=== PATIENT | female | born 1985 | race Caucasian/White ===

== ENCOUNTER → 2023-12-18 | Outpatient (CLI) | payer OTHER ==
[2023-12-18 15:58] LABS: BASOPHILS ABSOLUTE AUTO 0.02 K/mm3 (0.00-0.23); BASOPHILS PERCENT AUTO 0 % (0-2); EOSINOPHILS ABSOLUTE AUTO 0.16 K/mm3 (0.00-0.68); EOSINOPHILS PERCENT AUTO 2 % (0-6); Hematocrit 41.4 % (33.0-51.0); Hemoglobin 14.3 g/dL (11.5-16.0); IMMATURE GRAN ABSOLUTE AUTO 0.02 K/mm3 (0.00-0.10); IMMATURE GRAN PERCENT AUTO 0 % (0-1); LYMPHOCYTES PERCENT AUTO 26 % (21-46); MONOCYTES ABSOLUTE AUTO 0.41 K/mm3 (0.16-1.47); MONOCYTES PERCENT AUTO 4 % (4-13); Mean Corpuscular HGB 29.9 pg (26.0-34.0); Mean Corpuscular HGB Conc 34.5 g/dL (31.5-36.5); Mean Corpuscular Volume 86 fL (80-100); Mean Platelet Volume 9.9 fL (9.1-12.4); NEUTROPHILS ABSOLUTE AUTO 6.33 K/mm3 (1.96-9.15); NEUTROPHILS PERCENT AUTO 68 % (41-73); Platelet Count 246 K/mm3 (150-400); RDW Coefficient Variation 12.7 % (11.7-14.2); RDW Standard Deviation 39.7 fL (35.1-46.3); Red Blood Cell Count 4.79 M/mm3 (3.80-5.20); White Blood Cell Count 9.34 K/mm3 (4.00-11.30)
[2023-12-18 16:06] LABS: Albumin, Blood 3.4 g/dL (3.4-5.0); Bilirubin, Total 0.6 mg/dL (0.1-1.0); Bun/Creatinine Ratio 10.8 (12.0-20.0); Calcium, Blood 8.8 mg/dL (8.5-10.1); Creatinine, Blood 0.93 mg/dL (0.40-1.00); Globulin, Blood 3.4 g/dL (2.2-4.0); Potassium, Blood 3.1 mmol/L (3.5-5.5); Total Protein, Blood 6.8 g/dL (6.4-8.2)
== END ==
LOC: LAB 15:52 → LAB SHORT 15:52
PROVIDERS: Family Medicine
DX: R10.31 Right lower quadrant pain (principal)
CPT/HCPCS: 80053; 85025

== ENCOUNTER 2024-02-28 18:28 | Emergency (ER) | payer OTHER ==
[~2024-02-28] VITALS: Ht 157.5 cm; Wt 72.6 kg
[2024-02-28] MEDS ORDERED: KLONOPIN0.5 M9 PO (18:55)
[2024-02-28] MEDS ORDERED: AMITRIPTYLINE H25 MG PO (18:55)
[2024-02-28] MEDS ORDERED: Cyclobenzaprine5 MG PO (18:56)
[2024-02-28] MEDS ORDERED: CYMBALTA30 M2 PO (18:56)
[2024-02-28] MEDS ORDERED: Amitriptyline HCl 50 MG Tab PO ONE (19:05)
[2024-02-28] MEDS ORDERED: LORazepam 1 MG Tab PO ONE (19:05)
[2024-02-28] MEDS ORDERED: DULO30 PO (19:53)
[2024-02-28] MEDS ORDERED: AMIT25 PO (19:53)
== END 2024-02-28 20:01 | disposition home or self-care (01) ==
LOC: ER 18:28
DX: F43.0 Acute stress reaction (principal); F41.8 Other specified anxiety disorders; Z88.0 Allergy status to penicillin; Z88.8 Allergy status to other drugs, medicaments and biological substances; Z88.6 Allergy status to analgesic agent; Z88.2 Allergy status to sulfonamides; Z88.1 Allergy status to other antibiotic agents
CPT/HCPCS: 99284; A9270

== ENCOUNTER 2024-05-30 16:09 | Inpatient (IN) | payer OTHER ==
[2024-05-30] VITALS (18 sets, daily range): BP systolic 90–143; BP diastolic 59–104
[~2024-05-30] VITALS: Ht 172.7 cm; Wt 73.4 kg
[~2024-05-30 16:09] MED LIST: AMIT25 PO; AMITRIPTYLINE H25 MG PO; CYMBALTA30 M2 PO; Cyclobenzaprine5 MG PO; DULO30 PO; KLONOPIN0.5 M9 PO
[2024-05-30] MEDS ORDERED: Sodium Bicarb 8.4% 1 MEQ/ML 50 ML Vial IV ONE (16:20)
[2024-05-30] MEDS ORDERED: fentaNYL citrate 1,000 MCG in NS 80 ML IV SCH (16:25)
[2024-05-30 16:32] LABS: BASOPHILS ABSOLUTE AUTO 0.05 K/mm3 (0.00-0.23); BASOPHILS PERCENT AUTO 0 % (0-2); EOSINOPHILS ABSOLUTE AUTO 0.12 K/mm3 (0.00-0.68); EOSINOPHILS PERCENT AUTO 1 % (0-6); Hematocrit 44.4 % (33.0-51.0); Hemoglobin 15.6 g/dL (11.5-16.0); IMMATURE GRAN ABSOLUTE AUTO 0.05 K/mm3 (0.00-0.10); IMMATURE GRAN PERCENT AUTO 0 % (0-1); LYMPHOCYTES ABSOLUTE AUTO 4.01 K/mm3 (0.84-5.20); LYMPHOCYTES PERCENT AUTO 29 % (21-46); MONOCYTES ABSOLUTE AUTO 0.72 K/mm3 (0.16-1.47); MONOCYTES PERCENT AUTO 5 % (4-13); Mean Corpuscular HGB 30.5 pg (26.0-34.0); Mean Corpuscular HGB Conc 35.1 g/dL (31.5-36.5); Mean Corpuscular Volume 87 fL (80-100); NEUTROPHILS ABSOLUTE AUTO 9.06 K/mm3 (1.96-9.15); NEUTROPHILS PERCENT AUTO 65 % (41-73); Platelet Count 375 K/mm3 (150-400); RDW Coefficient Variation 12.2 % (11.7-14.2); RDW Standard Deviation 38.9 fL (35.1-46.3); Red Blood Cell Count 5.11 M/mm3 (3.80-5.20); White Blood Cell Count 14.01 K/mm3 (4.00-11.30)
[2024-05-30] MEDS ORDERED: Milrinone/Dextrose 100 ML IV SCH (16:45)
[2024-05-30] MEDS ORDERED: Midazolam HCL 50 MG in NS 40 ML IV SCH (16:45)
[2024-05-30 16:57] LABS: Ethanol (Alcohol), Blood, Med <3 mg/dL; Salicylate 3.3 mg/dL (2.8-20.0)
[2024-05-30 17:01] LABS: Acetaminophen, Random <2.0 ug/mL (10.0-30.0); Alanine Aminotransfer (ALT/SGP 30 U/L (12-78); Albumin, Blood 3.6 g/dL (3.4-5.0); Albumin/Globulin Ratio 1.1 (0.8-1.8); Alk Phos 60 U/L (50-136); Anion Gap 13 mmol/L (3-11); Aspartate Aminotrans (AST/SGOT 18 U/L (12-37); Blood Urea Nitrogen 13 mg/dL (8-24); Bun/Creatinine Ratio 12.6 (12.0-20.0); CO2, Blood 21 mmol/L (21-32); Calcium, Blood 8.8 mg/dL (8.5-10.1); Chloride, Blood 105 mmol/L (98-108); Creatinine, Blood 1.03 mg/dL (0.40-1.00); Globulin, Blood 3.4 g/dL (2.2-4.0); Glomerular Filtration Rate 72 (60-); Glucose, Blood 247 mg/dL (70-99); Potassium, Blood 3.5 mmol/L (3.5-5.5); Sodium, Blood 135 mmol/L (136-145)
[2024-05-30 17:03] LABS: Source, Urine Clean Catch
[2024-05-30 17:15] LABS: Appearance, Urine Clear (Clear); Bilirubin, Urine Neg (Neg); Blood, Urine Neg (Neg); Color, Urine Yellow (P-Yellow); Glucose Qualitative, Urine Neg (Neg); Ketones, Urine Neg (Neg); Leukocyte Esterase, Urine Neg (Neg); Nitrite, Urine Neg (Neg); Protein, Urine 2+ (Neg); Specific Gravity, Urine 1.025 (1.003-1.022); Urobilinogen, Urine NORM (Normal)
[2024-05-30 17:34] LABS: U Amphetamine Screen DETECTED; U Barbituate Screen Not Detected; U Benzodiazapine Screen Not Detected; U Buprenorphine Screen Not Detected; U Cannabinoids Screen Not Detected; U Cocaine Screen Not Detected; U Methadone Screen Not Detected; U Methamphetamine Screen DETECTED; U Opiates Screen Not Detected; U Oxycodone Screen Not Detected; U Phencyclidine Screen Not Detected
[2024-05-30 17:47] LABS: Bacteria Many /hpf; Mucus Light (0-Heavy); Squamous Epithelial Cells Few /hpf (Few); White Blood Cells, Urine 0-2 /hpf (0-5)
[2024-05-30 17:59] LABS: CORONAVIRUS COVID-19 AG Negative (NEGATIVE); INFLUENZA A AG Negative (NEGATIVE); INFLUENZA B AG Negative (NEGATIVE)
[2024-05-30 19:07] LABS: Base Excess Venous -0.6 mmol/L; Bicarbonate Venous 24.7 mmol/L (24.0-30.0); pH Blood Venous 7.48 (7.34-7.37)
[2024-05-30] MEDS ORDERED: Lactated Ringer's 1,000 ML IV SCH ×2 (19:30→19:35)
[2024-05-30] MEDS ORDERED: NS 1,000 ML IV ONE (20:00)
[2024-05-30] MEDS ORDERED: Cetylpyridinium Chloride 1 EA MISC MT SCH (20:00)
[2024-05-30] MEDS ORDERED: FLU VACC TS2024-25(6MOS UP)/PF 45 MCG/0.5 ML SYRINGE IM ONE (21:00)
[2024-05-30] MEDS ORDERED: Ketamine HCl 100 MG / ML 5ML Vial XX ONE (21:35)
[2024-05-30] MEDS ORDERED: Rocuronium Bromide 10 MG/ML 5ML Injection IV ONE (21:35)
[2024-05-30] MEDS ORDERED: ePHEDrine Sulfate 50 MG/ML 1ML Injection XX ONE (21:35)
[2024-05-30] MEDS ORDERED: AMIT50 PO (22:12)
[2024-05-30] MEDS ORDERED: PROP10 PO (22:13)
--- NOTE | 2024-05-30 23:09 | NUR ---
ARRIVAL TO ICU PT ARRIVED TO ICU 9 AT 194 VIA ED BED AND TRANSFERED OVER TO ICU BED VIA SLIDE SHEET. BEING ADMITTED WITH INTENTIONAL OD. SHE IS SEDATED WITH VERSED INFUSING AT 4MG/HR AND FENTANYL AT 50MCG/HR; RASS EITHER -3 TO +2, CHALLENGING TO SEDATED DURING PERSONAL CARE. ON THE VENT WITH SETTINGS AC/VC 14/400/5/30%. AFEBRILE. NSR WITH RATE 70'S. LEVOPHED INFUSING FOR HYPOTENSION; SEE FLOWSHEET FOR TITRATION. OG PLACED TO LIS. SCHMIDT IN PLACE AND DRAINING TO GRAVITY. ADDITIONAL BOLUS GIVEN ONCE ARRIVAL. NOW LR INFUSING AT 200ML/HR. SEE ADDMISSION ASSESSMENT FOR FULL ASSESSMENT. PT MOTHER NGOC AT BEDSIDE UNTIL 2114. SHE WAS EMOTIONALLY DISTRAUGHT AND FEQUENTLY TEARFUL. EXPRESSING GUILT AND REFLECTED UPON THE PT LIFE/STRUGGLES FOLLOWED BY HER LIFE/STRUGGLES. DISCUSSED INFORMATIONAL CONSENT WHERE NGOC PUT A CODE WORD IN PLACE "GELY".
--- NOTE | 2024-05-30 23:52 | NUR ---
POISON CONTROL CONNECTED WITH POISON CONTROL AT 2004. THEY RECOMMENDED CHECKING ANOTHER ASPIRIN LEVEL, AND COMPLETING AN EKG NOW, AT 0000, AND IN THE AM. ALSO TO MONITOR FOR WIDENING QRS COMPLEX AND QTC CHANGES. FAX SENT OVER FROM POISON CONTROL WITH MORE DETAILED INFORMATION.
[2024-05-31] VITALS (92 sets, daily range): BP systolic 79–140; BP diastolic 50–90
[2024-05-31] MEDS ORDERED: Hydrogen Peroxide 1.5 % Solution MT SCH
[2024-05-31] MEDS ORDERED: FentaNYL Citrate 50 MCG/ML 2 ML Injection ONE (02:25)
[2024-05-31] MEDS ORDERED: FentaNYL Citrate 50 MCG/ML 2 ML Injection IV ONE (02:35)
[2024-05-31] MEDS ORDERED: FentaNYL Citrate 50 MCG/ML 2 ML Injection IV PRN (02:55)
[2024-05-31 04:46] LABS: Base Excess Venous 1.3 mmol/L; Bicarbonate Venous 25.1 mmol/L (24.0-30.0); pH Blood Venous 7.42 (7.34-7.37)
[2024-05-31 05:01] LABS: BASOPHILS ABSOLUTE AUTO 0.02 K/mm3 (0.00-0.23); BASOPHILS PERCENT AUTO 0 % (0-2); EOSINOPHILS ABSOLUTE AUTO 0.07 K/mm3 (0.00-0.68); EOSINOPHILS PERCENT AUTO 1 % (0-6); Hematocrit 34.6 % (33.0-51.0); IMMATURE GRAN ABSOLUTE AUTO 0.06 K/mm3 (0.00-0.10); IMMATURE GRAN PERCENT AUTO 1 % (0-1); LYMPHOCYTES ABSOLUTE AUTO 2.31 K/mm3 (0.84-5.20); LYMPHOCYTES PERCENT AUTO 18 % (21-46); MONOCYTES ABSOLUTE AUTO 0.89 K/mm3 (0.16-1.47); MONOCYTES PERCENT AUTO 7 % (4-13); Mean Corpuscular HGB 30.9 pg (26.0-34.0); Mean Corpuscular HGB Conc 34.7 g/dL (31.5-36.5); Mean Corpuscular Volume 89 fL (80-100); Mean Platelet Volume 9.8 fL (9.1-12.4); NEUTROPHILS ABSOLUTE AUTO 9.58 K/mm3 (1.96-9.15); NEUTROPHILS PERCENT AUTO 74 % (41-73); Platelet Count 194 K/mm3 (150-400); RDW Coefficient Variation 12.6 % (11.7-14.2); RDW Standard Deviation 41.3 fL (35.1-46.3); Red Blood Cell Count 3.88 M/mm3 (3.80-5.20); White Blood Cell Count 12.93 K/mm3 (4.00-11.30)
[2024-05-31 05:40] LABS: Albumin, Blood 2.7 g/dL (3.4-5.0); Bilirubin, Total 1.1 mg/dL (0.1-1.0); Bun/Creatinine Ratio 17.4 (12.0-20.0); Creatinine, Blood 0.69 mg/dL (0.40-1.00); Globulin, Blood 2.6 g/dL (2.2-4.0); Potassium, Blood 3.2 mmol/L (3.5-5.5); Total Protein, Blood 5.3 g/dL (6.4-8.2)
[2024-05-31] MEDS ORDERED: NS 500 ML IV ONE (06:00)
[2024-05-31] MEDS ORDERED: Potassium Chloride 40 MEQ in NS 250 ML IV ONE (06:00)
--- NOTE | 2024-05-31 06:38 | NUR ---
END OF SHIFT SUMMARY PT CONT TO BE SEDATED AND INTUBATED. SEDATION CHALLENGING T/O THE SHIFT, PT WOULD GO FROM RASS OF -3, TO RASS OF +3 DURING PERSONAL CARE; OCCATIONALLY SHE WAS REDIRECTABLE AND WOULD RETURN TO RASS OF -2; VERSED SLOWLY TITRATED UP DRURING SHIFT BUT EVENTUALLY CONTACTED DR SIDDIQI WHEN PT WAS NOT REDIRECTABLE ANYMORE AND KICKING LEGS AT STAFF; PRN FENTANYL PUSHES ADDED AND HELPED RETURN RASS TO -2; FENANYL GTT CONT AT 50MCG/HR AND VERSED INFUSING AT 11MG/HR. VENT SETTINGS AC/VC 14/400/5/30%. AFEBRILE. HR 60-70'S, NSR; THREE ECG'S COMPLETED PER POISON CONTROLS RECOMMENDATION; ONE EPISODE OF HR IN 30'S, LEVOPHED TEMPORARILY RESTARTED AT 2MCG/MIN BUT PLACED ON SB AGAIN AFTER 0600. SBP 90-120'S; ORIGINALLY LEVOPHED PLACED ON SB AT 0030. OG TO LIS. SCHMIDT IN PLACE AND DRAINING SMALL AMOUNT TO GRAVITY; CALL MADE TO HOSPITALIST REGARDING DECREASE IN OUTPUT; NEW ORDERS FOR 500ML BOLUS X1. CENTRAL LINE TO RIJ PATENT WITH DRESSING C/D/I. LR INFUSING AT 200ML/HR. NEW ORDERS PROVIDED TO REPLACE K+. WILL REPORT TO AM RN WHEN AVAILABLE.
[2024-05-31] MEDS ORDERED: Enoxaparin 40 MG/0.4 ML SYR SC SCH (09:00)
[2024-05-31] MEDS ORDERED: Pantoprazole Sodium 40 MG Injection IV SCH (09:00)
[2024-05-31] MEDS ORDERED: propofoL 100 ML IV SCH (09:55)
[2024-05-31] MEDS ORDERED: CefTRIAXone Sodium 1,000 MG in NS 100 ML IV SCH (10:41)
[2024-05-31] MEDS ORDERED: Thiamine HCl 100 MG in NS 50 ML IV SCH (10:43)
[2024-05-31] MEDS ORDERED: Magnesium Hydroxide Conc 10 ML UDC PT PRN (12:45)
[2024-05-31] MEDS ORDERED: Bisacodyl 10 MG Supp PR PRN (12:45)
[2024-05-31] MEDS ORDERED: Docusate Sodium Liquid 100 MG UDC PT PRN (12:45)
[2024-05-31] MEDS ORDERED: Folic Acid 1 MG TAB PT SCH (12:55)
[2024-05-31] MEDS ORDERED: Multivitamins-Minerals Liquid 15 ML Oral Syringe PT SCH (12:55)
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
--- NOTE | 2024-05-31 13:57 | NUR ---
REASSESSMENT PT'S VERSED WAS OFF THIS MORNING AND PT WAS ABLE TO FOLLOW COMANDS TO MOVE EACH EXTREMITY. SHE WAS AGITATED AND ABLE TO BE CALMED DOWN AT FIRST, BUT THEN REQUIRED SEDATION TO BE RESTARTED. IT WAS DECREASED TO 2MG/HR FOR HER WEANING TRIAL, BUT PT FAILED DUE TO APNEA. AT THAT TIME, DR. BURNHAM GAVE INSTRUCTIONS TO SWITCH VERSED TO PROPOFOL, WHICH WAS DONE. SHE IS LESS AGITATED WITH TURNS AND ORAL CARE AFTER SWITCHING TO PROPOFOL. FFENTANYL STILL INFUSING. LUNGS ARE CLEAR, SMALL TO MODERATE AMT OF THIN, WHITE SPUTUM. SR WITH RATE OF 60. FOR ABOUT 30 SECONDS THIS MORNING, HR DIPPED TO THE MID 30S, BUT CAME BACK UP SPONTANEOUSLY AND HASN'T HAPPENED AGAIN. TUBE FEED STARTED PER HEALTH SANITARIAN'S ORDERS. SCHMIDT ONLY PUTTING OUT ABOUT 15ML/HR, DR. BURNHAM AWARE. LR STOPPED PT HAS ALREADY HAD 4L OF FLUID. ORDER FOR CMP T OCHECK KIDNEY FUNCTION. PT'S MOTHER IS AT THE BEDSIDE AND HAS BEEN UDPATED BY NURSING STAFF AND VISITED BY TRACK LAMINATING MACHINE TENDER.
[2024-05-31 14:08] LABS: Albumin, Blood 2.3 g/dL (3.4-5.0); Bilirubin, Total 0.9 mg/dL (0.1-1.0); Bun/Creatinine Ratio 12.5 (12.0-20.0); Calcium, Blood 7.9 mg/dL (8.5-10.1); Creatinine, Blood 0.8 mg/dL (0.40-1.00); Globulin, Blood 2.4 g/dL (2.2-4.0); Potassium, Blood 3.8 mmol/L (3.5-5.5); Total Protein, Blood 4.7 g/dL (6.4-8.2)
[2024-05-31] MEDS ORDERED: LORazepam 2 MG/ML 1ML Injection IV PRN (14:55)
[2024-05-31] MEDS ORDERED: Potassium Phosphate Dibasic 30 MM in Dextrose 5% 500 ML IV SCH (15:00)
--- NOTE | 2024-05-31 17:00 | NUR ---
SHIFT SUMMARY PT REMAINS ALERT AND ORIENTED, ON 1L/NC. TRIALLED PT ON RA AGAIN THIS AFTERNOON AND SPO2 DROPS TO 85-88%. LUNGS ARE CLEAR, NONPRODUCTIVE COUGH TODAY. HRR. VOIDING USING THE COMMODE. WORKED WITH OT TODAY. TOOK A SHOWER. POOR APPETITE.
--- NOTE | 2024-05-31 17:20 | NUR ---
SHIFT SUMMARY PT REMAINS SEDATED AND INTUBATED. SHE WAS AGITATED THIS AFTERNOON DESPITE RECEVING PRN FENTANYL. SPOKE WITH DR. BURNHAM AND ORDER FOR PRN ATIVAN RECEIVED AND PT WAS MUCH LESS AGITATED AFTERWARDS. PROPFOL DROPPED TO 25MCG/KG/MIN WHEN HER HR WAS SUSTAINING AT 50. HR CURRENTLY 58. LUNGS CLEAR, MODERATE AMT OF SECRETIONS THIS AFTERNOON. MAP SUSTAINED BELOW 65 THIS AFTERNOON SO LEVOPHED HAD TO BE RESTARTED AND HAS MAINTAINED AT 2MCG/MIN. URINE OUTPUT CONTINUES TO AVERAGE ABOUT 20 ML/HR. TOLERATING TUBE FEED. SPOKE WITH PT'S MOTHER VIA PHONE THIS EVENING AND PROVIDED UPDATE.
[2024-05-31 20:41] LABS: Bun/Creatinine Ratio 11.9 (12.0-20.0); Calcium, Blood 7.7 mg/dL (8.5-10.1); Creatinine, Blood 0.75 mg/dL (0.40-1.00); Phosphorus, Blood 4.1 mg/dL (2.5-4.9); Potassium, Blood 3.9 mmol/L (3.5-5.5)
--- NOTE | 2024-05-31 21:33 | NUR ---
ASSUMED CARE AT 1900 PT LAYING IN BED SEDATED AND INTUBATED. SHE IS SEDATED ON PROPOFOL INFUSING AT 25MCG/KG/MIN AND FENTANYL INFUSING AT 50MCG/HR; RASS IS -2 WHEN TALKING TO HER BUT DURING PERSONAL CARE, PT BECOMES RESTLESS WITH RASS +2 AND PRN'S NEEDED FOR SEDATION; PRN ATIVAN AND FENTANYL AVAILABLE. VENT SETTINGS AC/VC 14/400/5/30%. AFEBRILE. NSR WITH RATE 60'S. SBP 100'S WITH MAP >65; LEVOPHED INFUSING AT 2MCG/HR. VHP INFUSING VIA OG AT 45ML/HR (GOAL) WITH 30ML WATER FLUSHES Q4HR. SCHMIDT IN PLACE WITH SMALL AMOUNT OF URINE OUTPUT. CENTRAL LINE TO RIJ PATENT WITH DRESSING C/D/I. SEE SHIFT ASSESSMENT FOR FULL ASSESSMENT. PT MOTHER NGOC CALLED AND WAS GIVEN AN UPDATE AT 2100.
[2024-06-01] VITALS (54 sets, daily range): BP systolic 99–126; BP diastolic 57–84
[2024-06-01 04:47] LABS: BASOPHILS ABSOLUTE AUTO 0.02 K/mm3 (0.00-0.23); BASOPHILS PERCENT AUTO 0 % (0-2); EOSINOPHILS ABSOLUTE AUTO 0.08 K/mm3 (0.00-0.68); EOSINOPHILS PERCENT AUTO 1 % (0-6); Hematocrit 33.3 % (33.0-51.0); Hemoglobin 11.1 g/dL (11.5-16.0); IMMATURE GRAN ABSOLUTE AUTO 0.04 K/mm3 (0.00-0.10); IMMATURE GRAN PERCENT AUTO 0 % (0-1); LYMPHOCYTES ABSOLUTE AUTO 2.07 K/mm3 (0.84-5.20); LYMPHOCYTES PERCENT AUTO 23 % (21-46); MONOCYTES ABSOLUTE AUTO 0.73 K/mm3 (0.16-1.47); MONOCYTES PERCENT AUTO 8 % (4-13); Mean Corpuscular HGB 30.7 pg (26.0-34.0); Mean Corpuscular HGB Conc 33.3 g/dL (31.5-36.5); Mean Corpuscular Volume 92 fL (80-100); Mean Platelet Volume 10.2 fL (9.1-12.4); NEUTROPHILS ABSOLUTE AUTO 6.19 K/mm3 (1.96-9.15); NEUTROPHILS PERCENT AUTO 68 % (41-73); Platelet Count 148 K/mm3 (150-400); RDW Coefficient Variation 12.6 % (11.7-14.2); RDW Standard Deviation 42.8 fL (35.1-46.3); Red Blood Cell Count 3.62 M/mm3 (3.80-5.20); White Blood Cell Count 9.13 K/mm3 (4.00-11.30)
[2024-06-01 05:05] LABS: Albumin, Blood 2.5 g/dL (3.4-5.0); Albumin/Globulin Ratio 0.9 (0.8-1.8); Bilirubin, Total 0.5 mg/dL (0.1-1.0); Bun/Creatinine Ratio 14.4 (12.0-20.0); Calcium, Blood 7.8 mg/dL (8.5-10.1); Creatinine, Blood 0.76 mg/dL (0.40-1.00); Globulin, Blood 2.7 g/dL (2.2-4.0); Phosphorus, Blood 3.3 mg/dL (2.5-4.9); Potassium, Blood 3.5 mmol/L (3.5-5.5); Total Protein, Blood 5.2 g/dL (6.4-8.2)
--- NOTE | 2024-06-01 06:21 | NUR ---
END OF SHIFT SUMMARY NO ACUTE EVENTS OVERNIGHT. SHE CONT TO BE SEDATED WITH PROPOFOL INFUSING AT 35MCG/KG/MIN AND FENTANYL 50MCG/HR; RASS EITHER -2 OR +1; ATIVAN GIVEN SEVERAL TIME T/O THE NIGHT FOR RASS OF +1 TO +2. VENT SETTINGS REMAIN AC/VC 14/400/5/30%. AFEBRILE. HR 60-70'S. SBP 100-115; LEVOPHED ON SB AT 0130. VHP INFUSING VIA OG AT GOAL. SCHMIDT IN PLACE WITH 350ML OUTPUT; STARTING TO BECOME MORE CLOUDY. CENTRAL LINE TO RIJ PATENT WITH DRESSING C/D/I. WILL REPORT TO AM RN WHEN AVAILABLE.
--- NOTE | 2024-06-01 07:00 | NUR ---
ASSUMPTION OF CARE PT RECEIVING PROPOFOL 35MCG/KG/MIN AND FENTANYL 50MCG/HR. SHE IS INTUBATED WITH VENT SETTINGS AC/VC 14/400/5/30%. RASS -1. WITH STIMULI AND CARE RASS INCREASES TO +2. TUBE FEEDING INFUSING AT GOAL RATE VIA OGT. SINUS ON MONITOR WITH RATE IN 70S, BP STABLE WITH MAP >65. TEMP SCHMIDT PATENT AND DRAINING TO GRAVITY.
[2024-06-01] MEDS ORDERED: Thiamine HCl 100 MG Tab PT SCH (09:00)
--- NOTE | 2024-06-01 09:56 | NUR ---
SPONTANEOUS BREATHING TRIAL: DR. QUAN INITIATED SPONTANEOUS BREATHING TRIAL AT 0955. REPORTED PLAN TO EXTUBATE TODAY. TUBE FEEDING PLACED ON STAND BY. CHARGE NURSE NOTIFIED AND WORKING ON OBTAINING A SITTER FOR THIS PATIENT.
--- NOTE | 2024-06-01 11:17 | NUR ---
UPDATE/EXTUBATION PT TRANSITIONED TO SPONT AT 0955 AND TOLERATING WELL. SEDATION OFF. PT IS AWAKE, SITTING UP IN BED AND PULLING AGAINST RESTRAINTS. EXPLAINED EXTUBATION TO PT, PT BECOMES CALM AND FOLLOWS COMMANDS. EXTUBATED AT 1030. ON RA WITH SPO2 >92%. HOSPITALIST ROUNDED. PROVIDER CONSULT PLACED TO DR ABERNATHY. VOICE IS SOFT, PT ASKS FOR HER MOTHER. CALLED PT'S MOTHER WHO IS NOW AT BEDSIDE. 1:[address]
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
--- NOTE | 2024-06-01 18:16 | NUR ---
BELONGINGS PHONE, PAIR OF BLACK SHOES, 2 BRAS, 1 SHIRT, PAIR OF SOCKS, EMPTY AMITRIPTYLINE AND EMPTY PROPRANOLOL IN PATIENT BELONGINGS BAG WITH PT LABEL. BELONGINGS LOCKED IN CABINET IN ROOM.
[2024-06-02 04:52] VITALS: BP 120/75
[2024-06-02 06:20] LABS: BASOPHILS ABSOLUTE AUTO 0.02 K/mm3 (0.00-0.23); BASOPHILS PERCENT AUTO 0 % (0-2); EOSINOPHILS PERCENT AUTO 1 % (0-6); Hematocrit 37.2 % (33.0-51.0); Hemoglobin 12.6 g/dL (11.5-16.0); IMMATURE GRAN ABSOLUTE AUTO 0.04 K/mm3 (0.00-0.10); IMMATURE GRAN PERCENT AUTO 1 % (0-1); LYMPHOCYTES ABSOLUTE AUTO 1.62 K/mm3 (0.84-5.20); LYMPHOCYTES PERCENT AUTO 19 % (21-46); MONOCYTES ABSOLUTE AUTO 0.75 K/mm3 (0.16-1.47); MONOCYTES PERCENT AUTO 9 % (4-13); Mean Corpuscular HGB Conc 33.9 g/dL (31.5-36.5); Mean Corpuscular Volume 91 fL (80-100); Mean Platelet Volume 10.1 fL (9.1-12.4); NEUTROPHILS ABSOLUTE AUTO 6.18 K/mm3 (1.96-9.15); NEUTROPHILS PERCENT AUTO 71 % (41-73); Platelet Count 149 K/mm3 (150-400); RDW Standard Deviation 40.5 fL (35.1-46.3); Red Blood Cell Count 4.07 M/mm3 (3.80-5.20); White Blood Cell Count 8.71 K/mm3 (4.00-11.30)
--- NOTE | 2024-06-02 06:23 | NUR ---
END OF SHIFT SUMMARY NO ACUTE EVENTS OVERNIGHT. SHE WAS ABLE TO GET A FEW LONGER NAPS IN T/O THE NIGHT. SHE IS A/O X3-4, WHEN SHE WAKES UP SHE CAN BE DISORIENTED BUT EASILY REORIENTS; SHE IS RECALLING THE EVENTS THAT LEAD HER TO BE HOSPITALIZED. NO C/O PAIN. 5L NC PLACED WHILE PT IS SLEEPING TO KEEP SPO2 >94%; HAS DRY/HACKING COUGH; VOICE SOFT. AFERBILE. NSR WITH RATE 90-110. BP STABLE. SHE WOKE UP AROUND 0000 HUNGRY AND TOLERATED LARGE SNACK WELL; TOLERATING PO FLUIDS WELL; ONE EPISODE OF DIARRHEA THIS SHIFT. SHE IS ABLE TO AMBULATE WITH MINIMAL ASSISTANCE TO TOILET AND SUCCESSFULLY URINATE. DRESSING OVER PREVIOUS RIJ CENTRAL LINE C/D/I. 1:1 SITTER NOTED ALL SHIFT. WILL REPORT TO AM RN WHEN AVAILABLE.
[2024-06-02 07:00] LABS: Bun/Creatinine Ratio 11.3 (12.0-20.0); Creatinine, Blood 0.71 mg/dL (0.40-1.00); Magnesium, Blood 2.3 mg/dL (1.6-2.4); Phosphorus, Blood 3.4 mg/dL (2.5-4.9); Potassium, Blood 3.6 mmol/L (3.5-5.5)
[2024-06-02] MEDS ORDERED: Folic Acid 1 MG TAB PO SCH (09:00)
[2024-06-02] MEDS ORDERED: Multivitamins 1 Tab PO SCH (09:00)
[2024-06-02] MEDS ORDERED: Thiamine HCl 100 MG Tab PO SCH (09:00)
[2024-06-02 09:01] VITALS: BP 121/71
[2024-06-02] MEDS ORDERED: MULVITA PO (13:57)
[2024-06-02] MEDS ORDERED: Acetaminophen650 M1 PO (13:57)
[2024-06-02] MEDS ORDERED: CEPH500 PO (14:20)
[2024-06-02] MEDS ORDERED: VISBIOME 112.51 EACH PO (14:22)
[2024-06-02 15:36] VITALS: BP 136/89
--- NOTE | 2024-06-02 16:10 | NUR ---
SUMMARY PT A/O X4. ASKING APPROPRIATE QUESTIONS. COOPERATIVE WITH CARE. STANDBY ASSIST OOB. DENIES SUICIDAL IDEATION TODAY. 1:1 SITTER PRESENT. PT IS BEING DISCHARGED TO [facility]. ESCORT ACCOMPANIES PT TO TRANSPORT ARRANGED BY [facility]. NO SIGN OF DISTRESS.
== END 2024-06-02 16:15 | DRG 917 ==
LOC: ER 16:09 → ICUE 18:57
PROVIDERS: Family Medicine; Nurse Practitioner Acute Care; Student in an Organized Health Care Education/Training Program; ADMIT Internal Medicine
PROC: 5A1945Z Respiratory Ventilation, 24-96 Consecutive Hours (ICD-10-PCS; principal; 2024-05-30)
PROC: 0BH17EZ Insertion of Endotracheal Airway into Trachea, Via Natural or Artificial Opening (ICD-10-PCS; 2024-05-30)
PROC: 3E033XZ Introduction of Vasopressor into Peripheral Vein, Percutaneous Approach (ICD-10-PCS; 2024-05-30)
PROC: 05HY33Z Insertion of Infusion Device into Upper Vein, Percutaneous Approach (ICD-10-PCS; 2024-05-30)
DX: T44.7X2A Poisoning by beta-adrenoreceptor antagonists, intentional self-harm, initial encounter (principal); G92.8 Other toxic encephalopathy; J69.0 Pneumonitis due to inhalation of food and vomit; J96.01 Acute respiratory failure with hypoxia; F32.2 Major depressive disorder, single episode, severe without psychotic features; T43.012A Poisoning by tricyclic antidepressants, intentional self-harm, initial encounter; T43.592A Poisoning by other antipsychotics and neuroleptics, intentional self-harm, initial encounter; I95.9 Hypotension, unspecified; F32.A Depression, unspecified; F10.20 Alcohol dependence, uncomplicated; F15.90 Other stimulant use, unspecified, uncomplicated; D69.6 Thrombocytopenia, unspecified; D72.829 Elevated white blood cell count, unspecified; R73.9 Hyperglycemia, unspecified; E87.6 Hypokalemia; F17.210 Nicotine dependence, cigarettes, uncomplicated; Z88.0 Allergy status to penicillin; Z88.2 Allergy status to sulfonamides; Z88.6 Allergy status to analgesic agent; Z88.8 Allergy status to other drugs, medicaments and biological substances; Z91.51 Personal history of suicidal behavior
CPT/HCPCS: 31500; 36415; 36556; 51702; 71045; 80048; 80053; 80320; 81001; 82803; 82947; 83735; 84100; 85025; 87086; 87428-QW; 93005; 93010; 94002; 94003; 94760; 96365; 96366; 96375; 99291-25; A9270; C1751; G0480; J0696; J1650; J2060; J2250; J2260; J2470; J2704; J3010; J3411; J3480; J7030; J7040; J7050; J7060; J7120

== ENCOUNTER 2024-06-02 15:29 | Inpatient (IN) | payer OTHER ==
[~2024-06-02] VITALS: Ht 157.5 cm; Wt 71.5 kg
[~2024-06-02 15:29] MED LIST changes: +AMIT50 PO; +Acetaminophen650 M1 PO; +CEPH500 PO; +MULVITA PO; +PROP10 PO; +VISBIOME 112.51 EACH PO
[2024-06-02 16:32] VITALS: BP 136/93
[2024-06-02 16:54] VITALS: BP 136/93
[2024-06-02] MEDS ORDERED: TraZODone HCl 50 MG Tab PO PRN (17:50)
[2024-06-02] MEDS ORDERED: Haloperidol 5 MG Tab PO PRN (17:50)
[2024-06-02] MEDS ORDERED: OLANZapine ODT 10 MG Tab MM PRN (17:50)
[2024-06-02] MEDS ORDERED: LORazepam 2 MG Tab PO PRN (17:50)
[2024-06-02] MEDS ORDERED: HydrOXYzine Pamoate 50 MG Cap PO PRN (17:50)
[2024-06-02] MEDS ORDERED: Polyethylene Glycol 3350 17 gm PO PRN (17:50)
[2024-06-02] MEDS ORDERED: Calcium Carbonate 500 MG Tab Chew PO PRN (17:55)
[2024-06-02] MEDS ORDERED: Melatonin 3 MG Tab PO PRN (17:55)
[2024-06-02] MEDS ORDERED: FLU VACC TS2024-25(6MOS UP)/PF 45 MCG/0.5 ML SYRINGE IM ONE (17:55)
[2024-06-02] MEDS ORDERED: Aluminum Hydroxide 320MG/5ML 473 ML PO PRN (17:55)
[2024-06-02] MEDS ORDERED: Acetaminophen 325 MG TABLET PO PRN (17:55)
[2024-06-02] MEDS ORDERED: DiphenhydrAMINE HCl 50 MG Cap PO PRN (17:55)
[2024-06-02] MEDS ORDERED: Ondansetron 4 MG SoluTab MM PRN (18:05)
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
[2024-06-02] MEDS ORDERED: Nicotine 21 MG PATCH TOP SCH (18:25)
[2024-06-02 20:53] VITALS: BP 135/103
--- NOTE | 2024-06-03 04:21 | NUR ---
SHIFT SUMMARY: PATIENT WAS IN HER ROOM AT THE BEGINNING OF THE SHIFT, LYING DOWN AND RESTING. SHE RESPONDED TO RN GREETING AND STATED SHE DID NOT WANT TO COME TO SNACK TIME. SHE DID CHANGE HER MIND AND WAS PARTICIPATING IN SNACK AND FOLLOW UP TIME AT 1999. SHE WAS PLEASANT AND COOPERATIVE WITH CARES. SHE WAS COMPLIANT WITH EVENING MEDICATIONS AND WAS UP X1 DURING THE NIGHT FOR A PRN VISTARIL BECAUSE SHE WOKE UP AND COULD NOT FALL BACK ASLEEP. SHE HAD A MAJOR COMPLAINT OF SORE THROAT FROM THE INTUBATION THAT OCCURRED. SHE WAS GIVEN TYLENOL AND HOT TEA. SHE WAS EDUCATED ON WHAT TO EXPECT A RESULT OF THE INTUBATION AND HELPS THAT SHE MIGHT EMPLOY. SHE WAS ENCOURAGED TO BRING IT UP TO THE DR WELL. SHE STATED THAT THE TYLENOL AND THE HOT TEA WERE VERY HELPFUL. SHE DENIED THOUGHTS OF SI OR SELF HARM AT THIS TIME, AND STATED SHE WILL COME AND TALK TO STAFF SHOULD SHE FEEL THAT WAY. SHE DID TALK TO SELECT MHA FOR QUITE SOME TIME IN THE SENSORY ROOM AND STATED THAT IT WAS HELPFUL FOR HER. CONTINUING TO MONITOR FOR SAFETY WITH Q15 MINUTE CHECKS.
[2024-06-03] MEDS ORDERED: Multivitamins 1 Tab PO SCH (09:00)
[2024-06-03] MEDS ORDERED: FLUoxetine HCL 20 MG CAP PO SCH (10:00)
--- NOTE | 2024-06-03 13:35 | NUR ---
NURSE NOTE AT 1253 PT HAD SUDDEN ONSET OF L FOOT NUMBNESS THAT RADIATED UP INTO L SIDE NUMBNESS. SHE BACAME DIZZY AND NOTIFIED THIS RN. PT DENIES CP AND SOB AT THIS TIME. SHE STATES SHE GETS DIZZY WITH HER ANXIETY BUT NEVER NUMB. EKG PERFORMED UNDER NURSE PROTOCAL AND SHOWS NSR. PT STATES SYMPTOMS ALMOST RESOLVED COMPLETELY BY THE TIME THE EKG WAS COMPLETED. DR ABERNATHY NOTIFIED OF INCIDENT AND EKG READING.
--- NOTE | 2024-06-03 15:24 | NUR ---
PT A/O X4. PLEASANT AND COOPERATIVE. PT IS ANXIOUS. DENIES TO BE SI,HI AND VH AT THIS TIME. PT TOLD OF HER OD EPISODE FREELY. SHE SPEAKS OF PRESSURE FROM HER BOYFRIEND AND FAMILY FOR HER TO GO TO WORK AND THAT IS WHAT UPSETS HER THE MOST IS THAT THEY CAN'T UNDERSTAND HER SIDE OF THE ANXIOUSNESS. PT IS TEARY ON AND OFF. STATED SHE SLEPT POORLY LAST NIGHT. FEELS THAT SHE NEEDS MORE MEDICATION. GIVEN NEW ORDER OF PROZAC. AT NOON PT BECAME NAUSEATED AND WAS GIVEN ZOFRAN PRN. PT PARTICPATES IN GROUPS AND INTERACTS WELL WITH OTHERS. WILL CONTINUE TO MONITOR FOR SAFETY AND WELLNESS.
[2024-06-03] MEDS ORDERED: DEXTROMETHORPHAN/BENZOCAINE 1 EACH LOZENGE MT PRN (19:15)
--- NOTE | 2024-06-03 19:26 | NUR ---
SHIFT SUMMARY: PT A/O X4. PLEASANT AND COMPLIANT WITH CARE AND MEDS. PLEASE SEE PREVIOUS NOTES. PTT HAD A VISITOR FROM MOM AND BOY FRIEND TODAY. RECEIVED GOOD NEWS THAT SHE WILL BE ABLE TO HAVE A RELATIONSHIP WITH HER CHILDREN. SHE ALSO LEARNED FROM HER MOTHER THAT" I WAS ALMOST " . SHE BECAME TEARY A BIT. HAS HAD A SORE THROAT ON AND OFF [id number] THE DAY. CEPHOCHOL DROPS ORDERED. WILL CONTINUE TO MONITOR FOR SAFETY AND WELLNESS.
[2024-06-03 20:32] VITALS: BP 123/81
[2024-06-03] MEDS ORDERED: QUEtiapine Fumarate 100 MG Tab PO SCH (21:00)
--- NOTE | 2024-06-04 04:39 | NUR ---
SHIFT SUMMARY: PATIENT WAS IN THE [place] AT THE BEGINNING OF THE SHIFT, WATCHING TELEVISION AND INTERACTING POSITIVELY WITH PEERS. SHE PARTICIPATED IN EVENING SNACK AND FOLLOW UP GROUP IN THE DINING AREA. SHE WAS PLEASANT AND COOPERATIVE WITH CARES. SHE WAS COMPLIANT WITH EVENING MEDICATIONS. SHE BELIEVES SHE WILL GO HOME TODAY (06/04). 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 SHE DENIED THOUGHTS OF SI OR SELF HARMING. CONTINUING TO MONITOR FOR SAFETY WITH Q15 MINUTE CHECKS.
[2024-06-04 08:01] VITALS: BP 129/96
--- NOTE | 2024-06-04 11:35 | NUR ---
IMPORTANT DISCHARGE INFORMATION FOLLOW UP APPOINTMENT WITH [facility] ON: 06/10/24 AT 4PM PHARMACY: [facility]:
[2024-06-04] MEDS ORDERED: Prozac20 MG PO (12:05)
--- NOTE | 2024-06-04 12:44 | NUR ---
DISCHARGE SUMMARY PT DC FROM [facility] AT 1222, MOM HERE TO PICK HER UP, SCRIPT CALLED TO [facility] FOR PROZAC 20MG CAPS, 1 DAILY, #14, 1 REFILL
--- NOTE | 2024-06-04 14:41 | NUR ---
Post discharge: PT CALLED REGARDING DISCHARGE RX. SPOKE WITH PROVIDER AND VERBAL ORDER OBTAINED FOR SEROQUEL 100 MG PO QHS, #7 WITH 3 REFILLS. RX CALLED TO [facility] AT PT REQUEST.
[2024-06-05] MEDS ORDERED: FLUoxetine HCL 20 MG CAP PO SCH (09:00)
== END 2024-06-04 12:22 | disposition home or self-care (01) | DRG 885 ==
LOC: BHU 15:29
PROVIDERS: ADMIT Psychiatry & Neurology Psychiatry
DX: F33.2 Major depressive disorder, recurrent severe without psychotic features (principal); F43.25 Adjustment disorder with mixed disturbance of emotions and conduct; F60.3 Borderline personality disorder; F10.20 Alcohol dependence, uncomplicated; F17.210 Nicotine dependence, cigarettes, uncomplicated; F12.90 Cannabis use, unspecified, uncomplicated; F15.10 Other stimulant abuse, uncomplicated; Z88.2 Allergy status to sulfonamides; Z88.0 Allergy status to penicillin; Z88.8 Allergy status to other drugs, medicaments and biological substances; Z28.21 Immunization not carried out because of patient refusal
CPT/HCPCS: A9270

== ENCOUNTER 2024-08-30 22:50 | Emergency (ER) | payer OTHER ==
[~2024-08-30] VITALS: Ht 157.5 cm; Wt 71.2 kg
[~2024-08-30 22:50] MED LIST changes: +Prozac20 MG PO
== END 2024-08-31 04:40 | disposition left against medical advice (07) ==
LOC: ER 22:50
DX: R10.9 Unspecified abdominal pain (principal); Z53.21 Procedure and treatment not carried out due to patient leaving prior to being seen by health care provider
CPT/HCPCS: 76856

== ENCOUNTER 2024-10-27 22:28 | Emergency (ER) | payer OTHER ==
[~2024-10-27] VITALS: Ht 157.5 cm; Wt 76.2 kg
[2024-10-27 23:22] LABS: Source, Urine Clean Catch
[2024-10-27 23:26] LABS: BASOPHILS ABSOLUTE AUTO 0.04 K/mm3 (0.00-0.23); BASOPHILS PERCENT AUTO 0 % (0-2); EOSINOPHILS ABSOLUTE AUTO 0.23 K/mm3 (0.00-0.68); EOSINOPHILS PERCENT AUTO 2 % (0-6); Hematocrit 47.4 % (33.0-51.0); Hemoglobin 15.8 g/dL (11.5-16.0); IMMATURE GRAN ABSOLUTE AUTO 0.03 K/mm3 (0.00-0.10); IMMATURE GRAN PERCENT AUTO 0 % (0-1); LYMPHOCYTES ABSOLUTE AUTO 3.59 K/mm3 (0.84-5.20); LYMPHOCYTES PERCENT AUTO 34 % (21-46); MONOCYTES ABSOLUTE AUTO 0.51 K/mm3 (0.16-1.47); MONOCYTES PERCENT AUTO 5 % (4-13); Mean Corpuscular HGB Conc 33.3 g/dL (31.5-36.5); Mean Corpuscular Volume 87 fL (80-100); NEUTROPHILS ABSOLUTE AUTO 6.09 K/mm3 (1.96-9.15); NEUTROPHILS PERCENT AUTO 58 % (41-73); NRBC ABSOLUTE 0.00 K/mm3 (0.00-0.02); NRBC Auto 0.0 /100 WBC (0.0-0.2); Platelet Count 276 K/mm3 (150-400); RDW Coefficient Variation 13.1 % (11.7-14.2); RDW Standard Deviation 41.5 fL (35.1-46.3)
[2024-10-28 00:41] LABS: Alanine Aminotransfer (ALT/SGP 80 U/L (12-78); Albumin, Blood 4.1 g/dL (3.4-5.0); Albumin/Globulin Ratio 1.0 (0.8-1.8); Anion Gap 5 mmol/L (3-11); Aspartate Aminotrans (AST/SGOT 49 U/L (12-37); Beta HCG, Quantitative, Serum <1 mIU/mL (0-3); Bilirubin, Total 0.3 mg/dL (0.1-1.0); Blood Urea Nitrogen 16 mg/dL (8-24); CO2, Blood 27 mmol/L (21-32); Calcium, Blood 9.2 mg/dL (8.5-10.1); Chloride, Blood 104 mmol/L (98-108); Creatinine, Blood 0.83 mg/dL (0.40-1.00); Globulin, Blood 4.2 g/dL (2.2-4.0); Glucose, Blood 97 mg/dL (70-99); Potassium, Blood 4.1 mmol/L (3.5-5.5); Sodium, Blood 132 mmol/L (136-145); Total Protein, Blood 8.3 g/dL (6.4-8.2)
[2024-10-28 01:34] LABS: Bilirubin, Urine Neg (Neg); Glucose Qualitative, Urine Neg (Neg); Ketones, Urine Neg (Neg); Leukocyte Esterase, Urine Neg (Neg); Protein, Urine Neg (Neg); Specific Gravity, Urine 1.015 (1.003-1.022); Urobilinogen, Urine NORM (Normal)
[2024-10-28 01:58] LABS: Color, Urine Pale Yellow (P-Yellow)
== END 2024-10-27 23:28 | disposition left against medical advice (07) ==
LOC: ER 22:28
PROVIDERS: Emergency Medicine; Student in an Organized Health Care Education/Training Program
DX: O99.891 Other specified diseases and conditions complicating pregnancy (principal); R10.2 Pelvic and perineal pain; Z3A.00 Weeks of gestation of pregnancy not specified; Z53.21 Procedure and treatment not carried out due to patient leaving prior to being seen by health care provider
CPT/HCPCS: 80053; 81003; 81025; 84702; 85025; 99284

== ENCOUNTER 2024-12-25 18:16 | Inpatient (IN) | payer OTHER ==
[~2024-12-25] VITALS: Ht 167.6 cm; Wt 75.0 kg
[2024-12-25] MEDS ORDERED: Rocuronium Bromide 10 MG/ML 5ML Injection IV ONE ×2 (18:40→21:42)
[2024-12-25] MEDS ORDERED: FentaNYL Citrate 50 MCG/ML 2 ML Injection IV SCH (18:40)
[2024-12-25] MEDS ORDERED: Etomidate 2MG / ML 10ML Vial IV ONE (18:40)
[2024-12-25 18:49] LABS: BASOPHILS ABSOLUTE AUTO 0.03 K/mm3 (0.00-0.23); BASOPHILS PERCENT AUTO 0 % (0-2); EOSINOPHILS ABSOLUTE AUTO 0.08 K/mm3 (0.00-0.68); EOSINOPHILS PERCENT AUTO 1 % (0-6); Hematocrit 42.5 % (33.0-51.0); Hemoglobin 14.8 g/dL (11.5-16.0); IMMATURE GRAN ABSOLUTE AUTO 0.01 K/mm3 (0.00-0.10); IMMATURE GRAN PERCENT AUTO 0 % (0-1); LYMPHOCYTES ABSOLUTE AUTO 1.51 K/mm3 (0.84-5.20); LYMPHOCYTES PERCENT AUTO 20 % (21-46); MONOCYTES ABSOLUTE AUTO 0.47 K/mm3 (0.16-1.47); MONOCYTES PERCENT AUTO 6 % (4-13); Mean Corpuscular HGB Conc 34.8 g/dL (31.5-36.5); Mean Corpuscular Volume 84 fL (80-100); NEUTROPHILS ABSOLUTE AUTO 5.49 K/mm3 (1.96-9.15); NEUTROPHILS PERCENT AUTO 72 % (41-73); NRBC ABSOLUTE 0.00 K/mm3 (0.00-0.02); NRBC Auto 0.0 /100 WBC (0.0-0.2); Platelet Count 247 K/mm3 (150-400); RDW Coefficient Variation 12.1 % (11.7-14.2); RDW Standard Deviation 36.4 fL (35.1-46.3)
[2024-12-25 19:09] LABS: Source, Urine Clean Catch
[2024-12-25 19:17] LABS: Bilirubin, Urine Neg (Neg); Color, Urine Yellow (P-Yellow); Glucose Qualitative, Urine 2+ (Neg); Ketones, Urine 3+ (Neg); Leukocyte Esterase, Urine Neg (Neg); Protein, Urine 2+ (Neg); Specific Gravity, Urine 1.030 (1.003-1.022); Urobilinogen, Urine NORM (Normal)
[2024-12-25 19:22] LABS: Ethanol (Alcohol), Blood, Med <3 mg/dL; Salicylate 3.3 mg/dL (2.8-20.0); Thyroid Stimulating Hormone 5.000 uIU/mL (0.360-4.800)
[2024-12-25 19:35] LABS: Alanine Aminotransfer (ALT/SGP 33 U/L (12-78); Albumin, Blood 3.7 g/dL (3.4-5.0); Albumin/Globulin Ratio 1.1 (0.8-1.8); Anion Gap 11 mmol/L (3-11); Aspartate Aminotrans (AST/SGOT 24 U/L (12-37); Bilirubin, Total 0.8 mg/dL (0.1-1.0); Blood Urea Nitrogen 5 mg/dL (8-24); CO2, Blood 23 mmol/L (21-32); Calcium, Blood 8.9 mg/dL (8.5-10.1); Chloride, Blood 105 mmol/L (98-108); Creatinine, Blood 0.63 mg/dL (0.40-1.00); Globulin, Blood 3.4 g/dL (2.2-4.0); Glucose, Blood 201 mg/dL (70-99); Potassium, Blood 3.2 mmol/L (3.5-5.5); Sodium, Blood 136 mmol/L (136-145); Total Protein, Blood 7.1 g/dL (6.4-8.2)
[2024-12-25 19:38] LABS: U Amphetamine Screen DETECTED; U Barbituate Screen Not Detected; U Benzodiazapine Screen Not Detected; U Buprenorphine Screen Not Detected; U Cannabinoids Screen Not Detected; U Cocaine Screen Not Detected; U Methadone Screen Not Detected; U Methamphetamine Screen DETECTED; U Opiates Screen DETECTED; U Oxycodone Screen DETECTED; U Phencyclidine Screen Not Detected
[2024-12-25 19:56] LABS: Acetaminophen, Random <2.0 ug/mL (10.0-30.0)
[2024-12-25] MEDS ORDERED: LORazepam 2 MG/ML 1ML Injection ONE (20:20)
[2024-12-25] MEDS ORDERED: Potassium Chl 20MEQ/Water100ML 100 ML IV SCH (20:25)
[2024-12-25] MEDS ORDERED: LORazepam 2 MG/ML 1ML Injection IV PRN (20:25)
[2024-12-25] MEDS ORDERED: FLU VACC TS2025-26(6MOS UP)/PF 45 MCG/0.5 ML SYRINGE IM ONE (20:30)
[2024-12-25] MEDS ORDERED: NS 1,000 ML IV SCH (20:30)
[2024-12-25] MEDS ORDERED: CefTRIAXone Sodium 1,000 MG in NS 100 ML IV ONE (20:40)
[2024-12-25 20:48] LABS: pH Blood Venous 7.45 (7.34-7.37)
[2024-12-25] MEDS ORDERED: LORazepam 2 MG/ML 1ML Injection IV ONE (21:00)
[2024-12-25 21:15] LABS: Anion Gap 8.0 mmol/L (3-11); Blood Urea Nitrogen 5.0 mg/dL (8-24); CO2, Blood 28.0 mmol/L (21-32); Calcium, Blood 8.9 mg/dL (8.5-10.1); Chloride, Blood 105.0 mmol/L (98-108); Creatinine, Blood 0.68 mg/dL (0.40-1.00); Glucose, Blood 133.0 mg/dL (70-99); Magnesium, Blood 2.9 mg/dL (1.6-2.4); Potassium, Blood 3.4 mmol/L (3.5-5.5); Sodium, Blood 138.0 mmol/L (136-145)
[2024-12-25 21:30] VITALS: BP 124/92
--- NOTE | 2024-12-25 21:41 | NUR ---
ASSUMED CARE RECEIVED REPORT FROM PELON FROM ED. PATIENT ARRIVED @2102 TO ICU ROOM 8, PATIENT INTUBATED WITH A 7.5 ET TUBE @ 24 @ GUMS. SEDATED WITH PROPOFOL RUNNING @ 30MCG/KG/HR. PATIENT HAS TWO PERIPHERAL IVS ONE IN LEFT AC 22G AND RIGHT WRIST 18G. PATIENT HAS SCHMIDT DRAINING TO GRAVITY. VENT SETTING AC/VC 16/450/5/50%. PATIENT IN UPPER BILATERAL SOFT WRIST RESTRAINTS. PATIENT DOES NOT RESPOND TO VERBAL OR PAIN STIMULI. CALL LIGHT WITHIN REACH.
[2024-12-25] MEDS ORDERED: Naloxone HCl 0.4MG / ML 1ML Vial XX ONE (21:42)
[2024-12-25] MEDS ORDERED: Magnesium Sulfate 500 MG / ML 2ML Vial XX ONE (21:42)
[2024-12-25] MEDS ORDERED: Etomidate 2MG / ML 10ML Vial XX ONE (21:42)
[2024-12-25] MEDS ORDERED: CefTRIAXone Sodium 1,000 MG in NS 100 ML IV SCH ×2 (23:25→23:28)
[2024-12-25 23:57] VITALS: BP 147/87
[2024-12-26] VITALS (90 sets, daily range): BP systolic 89–160; BP diastolic 62–146
[2024-12-26] MEDS ORDERED: Hydrogen Peroxide 1.5 % Solution MT SCH
[2024-12-26 03:16] LABS: pH Blood Venous 7.56 (7.34-7.37)
[2024-12-26 03:18] LABS: BASOPHILS ABSOLUTE AUTO 0.03 K/mm3 (0.00-0.23); BASOPHILS PERCENT AUTO 0 % (0-2); EOSINOPHILS ABSOLUTE AUTO 0.11 K/mm3 (0.00-0.68); EOSINOPHILS PERCENT AUTO 1 % (0-6); Hematocrit 40.6 % (33.0-51.0); Hemoglobin 14.5 g/dL (11.5-16.0); IMMATURE GRAN ABSOLUTE AUTO 0.04 K/mm3 (0.00-0.10); IMMATURE GRAN PERCENT AUTO 0 % (0-1); LYMPHOCYTES ABSOLUTE AUTO 2.58 K/mm3 (0.84-5.20); LYMPHOCYTES PERCENT AUTO 24 % (21-46); MONOCYTES ABSOLUTE AUTO 0.76 K/mm3 (0.16-1.47); MONOCYTES PERCENT AUTO 7 % (4-13); Mean Corpuscular HGB Conc 35.7 g/dL (31.5-36.5); Mean Corpuscular Volume 83 fL (80-100); NEUTROPHILS ABSOLUTE AUTO 7.06 K/mm3 (1.96-9.15); NEUTROPHILS PERCENT AUTO 67 % (41-73); NRBC ABSOLUTE 0.00 K/mm3 (0.00-0.02); NRBC Auto 0.0 /100 WBC (0.0-0.2); Platelet Count 238 K/mm3 (150-400); RDW Coefficient Variation 12.2 % (11.7-14.2); RDW Standard Deviation 37.0 fL (35.1-46.3)
[2024-12-26 03:50] LABS: Alanine Aminotransfer (ALT/SGP 31.0 U/L (12-78); Albumin, Blood 3.7 g/dL (3.4-5.0); Albumin/Globulin Ratio 1.3 (0.8-1.8); Anion Gap 9.0 mmol/L (3-11); Aspartate Aminotrans (AST/SGOT 28.0 U/L (12-37); Bilirubin, Total 0.8 mg/dL (0.1-1.0); Blood Urea Nitrogen 5.0 mg/dL (8-24); CO2, Blood 24.0 mmol/L (21-32); Calcium, Blood 8.9 mg/dL (8.5-10.1); Chloride, Blood 109.0 mmol/L (98-108); Creatinine, Blood 0.59 mg/dL (0.40-1.00); Globulin, Blood 2.9 g/dL (2.2-4.0); Glucose, Blood 107.0 mg/dL (70-99); Magnesium, Blood 2.5 mg/dL (1.6-2.4); Potassium, Blood 3.7 mmol/L (3.5-5.5); Sodium, Blood 138.0 mmol/L (136-145); Total Protein, Blood 6.6 g/dL (6.4-8.2)
--- NOTE | 2024-12-26 06:21 | NUR ---
SHIFT SUMMARY PATIENT INTUBATED AND SEDATED. PATIENT MOST OF SHIFT NI MOVEMENT. @ 500 PATIENT STARTED TO PULL HANDS UP AND WHEN NURSE ASK PATIENT IF SHE CAN OPEN EYES PATIENT TRYS TO BUT CAN NOT. PATIENT AFERIBLE THROUGH SHIFT, HR 80-100'S SBP 120-130'S. ET TUBE 7.5 @24 AT GUMS AND OG TUBE CONNECT TO LOW INTERMIT SUCTION, PER DR NORMAN TURN OFF @ 0400 DUE TO PH 7.56. VENT SETTING 14/400/5/30%. PATIENT HAS SCHMIDT DRAINING TO GRAVITY. RIGHT WRIST AND LEFT AC PERIPHERAL IVS. PROPOFOL INFUSING @ 40MCG AND NACL INFUSING @ 125MLS. BILATERAL SOFT WRIST RESTRAINTS IN PLACE. CALL LIGHT WITHIN REACH.
--- NOTE | 2024-12-26 07:48 | NUR ---
AM NOTE... ASSUMED CARE OF PT AT 0700, PT IS INTUBATED AND SEDATED VENT SETTINGS ARE AC/VC: 14/400/5/30% WITH O2 SATS>95%. ET TUBE IS 7.5 AND 24 AT THE TEETH. PROPOFOL IS RUNNING AT 40MCG/KG/MIN WITH A RASS OF -1 TO -2. SEDATION VACATION WAS DONE THIS AM, PT WOKE AND FOLLOWED COMMANDS BUT QUICKLY BECAME ANXIOUS AND AGITATED. L/S WERE CLEAR T/O. PT IS IN SR/ST 90'S-100'S. BP IS STABLE WITH SBPs 120'S-130'S AND MAPS>65. NO SWELLING OR EDEMA NOTED ON THIS ASSESSMENT. BT PRESENT AND HYPERACTIVE, ABD SOFT TO PALPATION. OG TUBE IS 53 AND CLAMPED AT THIS TIME. SCHMIDT IS PATENT AND DRAINING TO GRAVITY.
[2024-12-26] MEDS ORDERED: Cetylpyridinium Chloride 1 EA MISC MT SCH (08:00)
[2024-12-26] MEDS ORDERED: Enoxaparin 40 MG/0.4 ML SYR SC SCH (09:00)
[2024-12-26] MEDS ORDERED: Haloperidol Lactate Inj. 5 MG/ML Injection IV PRN (10:05)
[2024-12-26] MEDS ORDERED: Pantoprazole Sodium 40 MG Injection IV SCH (11:00)
--- NOTE | 2024-12-26 17:25 | NUR ---
SHIFT SUMMARY.... NO ACUTE NEGATIVE CHANGES NOTED THIS SHIFT. PT CONTINUES TO BE INTUBATED AND SEDATED, SEDATION WAS CHANGED FROM PROPOFOL TO PRECEDEX DRIP WHICH IS CURRENTLY RUNNING AT 0.4MCG/KG/HR WITH A RASS OF -1. DURING THE SEDATION VACATION THE PT WOKE UP AND WAS ABLE TO NOD HER HEAD TO "YES/NO" QUESTIONS AND FOLLOW COMMANDS SUCH SQUEEZE MY HAND AND WRIGGLE YOUR TOES. BUT SHE QUICKLY BECAME AGITATED AND WAS SITTING UP IN THE BED AND ATTEMPTING TO PULL OUT THE TUBE. ANOTHER SEDATION VACATION WAS TRIED AT 1500, THE PT WAS VERY AGGRESIVE TOWARDS STAFF PINCHING AND SWINGING HER HANDS AT STAFF. THE PT CONTINUES TO BE IN SR/ST WITH STABLE BPs. SCHMITD IS PATENT AND DRAINING TO GRAVITY.
[2024-12-27] VITALS (41 sets, daily range): BP systolic 91–140; BP diastolic 61–119
--- NOTE | 2024-12-27 02:56 | NUR ---
UPDATE CALLED DR. NORMAN TO INFORM HIM PATIENT HAS HAD 160MLS OF URINE OUTPUT ON SHIFT. BLADDER SCANNED 0MLS AND FLUSH CATH. NO NEW ORDERS FROM DR. NORMAN, HE SAID WE WILL WAIT TILL MORNING AM LABS.
[2024-12-27 03:29] LABS: BASOPHILS ABSOLUTE AUTO 0.03 K/mm3 (0.00-0.23); BASOPHILS PERCENT AUTO 0 % (0-2); EOSINOPHILS ABSOLUTE AUTO 0.16 K/mm3 (0.00-0.68); EOSINOPHILS PERCENT AUTO 2 % (0-6); Hematocrit 38.1 % (33.0-51.0); Hemoglobin 12.9 g/dL (11.5-16.0); IMMATURE GRAN ABSOLUTE AUTO 0.02 K/mm3 (0.00-0.10); IMMATURE GRAN PERCENT AUTO 0 % (0-1); LYMPHOCYTES ABSOLUTE AUTO 2.69 K/mm3 (0.84-5.20); LYMPHOCYTES PERCENT AUTO 28 % (21-46); MONOCYTES ABSOLUTE AUTO 0.72 K/mm3 (0.16-1.47); MONOCYTES PERCENT AUTO 8 % (4-13); Mean Corpuscular HGB Conc 33.9 g/dL (31.5-36.5); NEUTROPHILS ABSOLUTE AUTO 5.94 K/mm3 (1.96-9.15); NEUTROPHILS PERCENT AUTO 62 % (41-73); NRBC ABSOLUTE 0.00 K/mm3 (0.00-0.02); NRBC Auto 0.0 /100 WBC (0.0-0.2); Platelet Count 192 K/mm3 (150-400); RDW Coefficient Variation 12.5 % (11.7-14.2); RDW Standard Deviation 40.4 fL (35.1-46.3)
[2024-12-27 03:31] LABS: Mean Corpuscular Volume 89 fL (80-100)
[2024-12-27 04:08] LABS: Alanine Aminotransfer (ALT/SGP 22.0 U/L (12-78); Albumin, Blood 2.8 g/dL (3.4-5.0); Albumin/Globulin Ratio 1.0 (0.8-1.8); Anion Gap 6.0 mmol/L (3-11); Aspartate Aminotrans (AST/SGOT 14.0 U/L (12-37); Bilirubin, Total 0.7 mg/dL (0.1-1.0); Blood Urea Nitrogen 6.0 mg/dL (8-24); CO2, Blood 23.0 mmol/L (21-32); Calcium, Blood 8.6 mg/dL (8.5-10.1); Chloride, Blood 119.0 mmol/L (98-108); Creatinine, Blood 0.78 mg/dL (0.40-1.00); Globulin, Blood 2.7 g/dL (2.2-4.0); Glucose, Blood 115.0 mg/dL (70-99); Potassium, Blood 4.0 mmol/L (3.5-5.5); Sodium, Blood 144.0 mmol/L (136-145); Total Protein, Blood 5.5 g/dL (6.4-8.2)
--- NOTE | 2024-12-27 05:30 | NUR ---
SHIFT SUMMARY PATIENT RESPOND TO VERBAL STIMULI TO NAME. OPENS EYES AND FOLLOWS SOME COMMANDS. PATIENT BECOMES AGITATED WITH MOVEMENTS AND SUCTIONING. PATIENT PULLS AGAINSTS SOFT WRIST RESTRAINTS. PATIENT DOES MOTION WITH HANDS THAT SHE WANTS SOMETHING TO DRINK. PATIENT AFERIBLE THROUGH SHIFT. HR IN THE 60'S AND SBP 90-110'S. PATIENT INTUBATED WITH ET TUBE 7.5 @ 24 AT GUMS. VENT SETTINGS AC/VC 14/400/5/30%. HAS OG TUBE @ 53 CM AND CLAMPED. PATIENT HAD SCHMIDT DRAINING VIKKI COLORED URINE IN A 265MLS FOR SHIFT DR. NORMAN AWARE. PATIENT HAS RIGHT WRIST AND LEFT WRIST PERIPHERAL IV'S WITH PRECEDEX RUNNING @ 0.6MCG AND NACL 0.9% RUNNING @ 125MLS/HR. CALL LIGHT WITHIN REACH.
--- NOTE | 2024-12-27 10:25 | NUR ---
RECEIVED CALL FROM PTS MOTHER NGOC KIMBALL [phone] SHE VOICED CONCERNS THAT SHE WAS TOLD THAT SHE COULD NOT SEE PATIENT OR RECEIVE INFORMATION. I REASSURED HER THAT I WOULD LOOK INTO THE SITUATION AND GET BACK TO HER.
--- NOTE | 2024-12-27 11:03 | NUR ---
EXTUBATION PT EXTUBATED AT 1055 BY MAZIN TIDWELL. PT PLACED ON 2L NC. SPO2 98%, RR 22-26. PT REQUESTS WATER AND EXPRESSES THROAT DISCOMFORT. PROVIDED EDUCATION REGARDING NPO STATUS UNTIL PT IS MORE ALERT. INITIATED 1:1 ALTERATION MANAGER UPON EXTUBATION.
--- NOTE | 2024-12-27 12:00 | NUR ---
RETURNED CALL TO PTS MOTHER NGOC I INFORMED HER THAT THE PATIENT IS STABLE AND THE BREATHING TUBE HAS BEEN REMOVED. I ALSO INFORMED HER THAT SHE IS WELCOME TO COME AND SEE HER DAUGHTER. NGOC INQUIRED TO HOW SHE WAS REMOVED FROM THE PATIENTS FACESHEET AND I LET HER KNOW THAT IS ALL DONE IN ADMITTING AND I DON'T HAVE ABILITY TO FIND WHEN OR WHO MADE THAT CHANGE. I SUGGESTED THAT ONCE SHE IS ABLE TO HAVE A CONVERSATION WITH HER DAUGHTER THEY COULD ADDRESS THAT TOGETHER.
--- NOTE | 2024-12-27 12:49 | NUR ---
MAURY PATIENT'S S/O HERE TO VISIT. BELONGINGS LEFT OUTSIDE THE ROOM. HE STATED HE IS IN COMMUNICATION WITH PT'S MOTHER. EXPLAINED WHY WE WERE NOT RELEASING INFORMATION. HE NODDED IN AGREEMENT.
--- NOTE | 2024-12-27 17:36 | NUR ---
BRIAN HAS BEEN LIBERATED FROM THE VENTILATOR THIS SHIFT. SHE HAS REMAINED SLEEPY THROUGHOUT THE SHIFT. SHE ASKED TO USE THE PHONE, THIS RN STOOD BY THE BED FOR HER TO MAKE CALLS. PHONE THEN REMOVED FROM THE ROOM. PT IS ABLE TO TAKE IN SOME WATER. SHE IS COOPERATIVE WITH CARE. VOICE REMAINS QUIET AND DIFFICULT TO HEAR WELL. SHE DOES COUGH, YANKAUER SUCTION USED. EXPECTORANT IS GREEN IN COLOR, CONGESTED IN UPPER CHEST. SCHMIDT REMAINS WITH LOW URINE OUTPUT. DR'S AWARE. POISON CONTROL STATES THIS IS EXPECTED WITH THE NOTED MEDICATION INGESTION. SITTER REMAINS AT BEDSIDE.
--- NOTE | 2024-12-27 18:49 | NUR ---
PT AWAKE AND ASKING FOR SOMETHING TO EAT. ASKED FOR A TURKEY SANDWICH AND MAYONAISSE AND MUSTARD. SHE ASKED IF SHE COULD CHECK HERSELF OUT. EATING HER SANDWICH AND REQUESTED NO ASSISTANCE.
--- NOTE | 2024-12-27 18:54 | NUR ---
CALL TO TO RELAY PT'S WISHES FOR WANTING TO "CHECK HERSELF OUT". DR. SANTIAGO SAID, NO, SHE MAY NOT GO HOME. AWARE OF PT'S WISHES.
--- NOTE | 2024-12-27 22:32 | NUR ---
PT AWAKE AND ALERT. PT IS ABLE TO MAKE NEEDS KNOWN. PT IS DECLINING A LARGE PORTION OF THE ASSESSMENT BUT DOES ALLOW THIS RN TO LISTENING TO HEART AND LUNGS AND ABD AFTER REPEATED REQUESTS TO DO SO. PT CONTINUOUSLY STATES "I'M FINE." PT REFUSING TO GIVE NAME AND DATE OF , INSTEAD SHOWS THIS RN HER WRIST BAND. PT DECLINING ASSESSMETN OF B/L IV LINES. PT WAS ORIENTED AND EDUCATED TO SITUATION AND RATIONAL FOR PHYSICAL ASSESSMENT AND ASSESSMENT OF IV LINES AND SCHMIDT CATH. PT DECLINES IV ABX AND PT IS ORIENTED TO RATIONAL FOR THIS AND PT CONINUES TO REFUSE ASSESSMENT, CARES, MEDICATIONS. 1:[address] PT REQUESTING SNACK; TURKEY SANDWICH, JELLO, PUDDING, AND MILK PROVIDED PER PT REQUEST. PT REMAINS ON CARDIAC/VITAL SIGN MONITORING.
[2024-12-28] VITALS (10 sets, daily range): BP systolic 119–160; BP diastolic 76–94
--- NOTE | 2024-12-28 06:19 | NUR ---
PT STABLE THROUGHOUT SHIFT, VITAL SIGNS WNL. PT IS ABLE TO MAKE NEEDS KNOWN BUT DOES REFUSES ASSESSMENTS, CARES, AND MEDICATIONS. PT REMAINS WITHDRAWN AND SOFT SPOKEN. PT CONTINUES TO HAVE LOW URINARY OUTPUT, SCHMIDT REMAINS IN PLACE FOR I&0. PT TAKES PO FLUIDS AND FOOD WELL W/O PROBLEM. 1:[address] IV SALINE LOCKED.
--- NOTE | 2024-12-28 10:31 | NUR ---
Spiritual Care Visit. After rounding and conferring with the Pts. nurse, this grain blender made a cold call visit. Pt. is awake when I came to bediside. This grain blender gently introduced myself. Pt. was very guarded and did not speak much. After introductions and a period of time, the Pt. verbalized gratitude for the spiritual care, and welcomed this grain blender to return.
--- NOTE | 2024-12-28 16:01 | NUR ---
DR. ABERNATHY TO ROOM FOR PT EVAL. PLANS TO TRANSFER PT TO [facility].
[2024-12-28] MEDS ORDERED: LYBALVI PO (17:33)
--- NOTE | 2024-12-28 18:32 | NUR ---
SHIFT SUMMARY NO ACUTE EVENTS. ROOM MITIGATED AND SITTER PRESENT AT BEDSIDE FOR 1:1 OBSERVATION. PT ALERT AND ORIENTED. REFUSED MAJORITY OF CARE INTERVENTIONS. PT WILL NOT ALLOW THIS RN TO ASSESS PATENCY OF IVS. DECLINES TO SIT IN CHAIR OR ON SIDE OF BED FOR MEALS. PT WILL ANSWERS SOME QUESTIONS APPROPRIATELY, BUT THEN WILL CLOSE EYES AND STOP ANSWERING. PT DENIED SI IDEATION OR INTENT DURING THIS SHIFT. PT UP TO BATHROOM W/ STEADY GAIT. STANDBY ASSIST FOR LINE ASSIST. PLANS TO DISCHARGE PT TO [facility], PT IS AWARE AND AGREEABLE. PT ON ROOM AIR W/ O2 SATS>95%. NSR VIA CONTINUOUS LOG INSPECTOR RATE OF 70-80S. BP STABLE W/ MAPS>65. PT AFEBRILE. BRAYAN AHN DC'Opal. NO BM THIS SHIFT. PT USES ROOM PHONE TO CALL MOTHER DURING SHIFT. PLAN TO TRANSFER PT TO [facility] AT SHIFT CHANGE. PLAN OF CARE ONGOING
--- NOTE | 2024-12-28 19:05 | NUR ---
REPORT TO SORAYA BRADLEY, PT TO TRANSFER TO [facility]
[2024-12-29] MEDS ORDERED: HYDHCL25 PO (02:33)
[2024-12-29] MEDS ORDERED: LYBALVI 15-101 EACH PO (02:34)
== END 2024-12-28 19:45 | DRG 917 ==
LOC: ER 18:16 → ICUE 19:55
PROVIDERS: Emergency Medicine; Family Medicine; Nurse Practitioner Acute Care; ADMIT Student in an Organized Health Care Education/Training Program
DX: T43.592A Poisoning by other antipsychotics and neuroleptics, intentional self-harm, initial encounter (principal); J96.00 Acute respiratory failure, unspecified whether with hypoxia or hypercapnia; Z99.11 Dependence on respirator [ventilator] status; I10 Essential (primary) hypertension; F32.A Depression, unspecified; E87.6 Hypokalemia; R94.31 Abnormal electrocardiogram [ECG] [EKG]; F15.10 Other stimulant abuse, uncomplicated; F10.10 Alcohol abuse, uncomplicated; Z91.51 Personal history of suicidal behavior; Z88.8 Allergy status to other drugs, medicaments and biological substances; Z88.0 Allergy status to penicillin; Z88.6 Allergy status to analgesic agent; Z79.899 Other long term (current) drug therapy
CPT/HCPCS: 31500; 36415; 51702; 70450; 71045; 80048; 80053; 80320; 81001; 81025; 82550; 82803; 83605; 83735; 84132; 84146; 84439; 84443; 85025; 93005; 93010; 94002; 94003; 94762; 99291-25; 99292; G0480; J0696; J1650; J2060; J2312; J2470; J2704; J3411; J3475; J3480; J7030; J7050; J7120

== ENCOUNTER 2024-12-28 17:45 | Inpatient (IN) | payer OTHER ==
[~2024-12-28] VITALS: Ht 157.5 cm; Wt 74.1 kg
[~2024-12-28 17:45] MED LIST changes: +LYBALVI PO
[2024-12-28] MEDS ORDERED: FLU VACC TS2025-26(6MOS UP)/PF 45 MCG/0.5 ML SYRINGE IM SCH (20:20)
[2024-12-28] MEDS ORDERED: Haloperidol Lactate Inj. 5 MG/ML Injection IM PRN (20:20)
[2024-12-28] MEDS ORDERED: Aluminum Hydroxide 320MG/5ML 473 ML PO PRN (20:25)
[2024-12-28] MEDS ORDERED: Polyethylene Glycol 3350 17 gm PO PRN (20:25)
[2024-12-28] MEDS ORDERED: DiphenhydrAMINE HCl 50 MG/ML 1ML Vial IM PRN (20:25)
[2024-12-28] MEDS ORDERED: Ondansetron 4 MG SoluTab MM PRN (20:30)
[2024-12-28] MEDS ORDERED: LORazepam 2 MG/ML 1ML Injection IM PRN (20:30)
[2024-12-28 21:03] VITALS: BP 147/92
--- NOTE | 2024-12-28 22:26 | NUR ---
ADMISSION NOTE PT PRESENTED TO U AT 1950 FROM [facility] ICU, ACCOMPANIED BY MHA AND SECURITY. PT CHANGED INTO SCRUBS, SKIN CHECK COMPLETED BY TWO RN'S. PT HAD NO BELONGINGS. PT REFUSED TO SIGN ANY ADMISSION FORMS. SHE IS SOFT SPOKEN, STATES HER THROAT IS STILL A LITTLE SORE FROM INTUBATION. PT IS CALM AND GUARDED. SHE IS HESITANT TO ANSWER SOME QUESTIONS, STATES "I DON'T WANT TO ANSWER." SHE DENIES ANY SI, HI, THOUGHTS OF SELF HARM OR AVTH. PT STATES "I OVERDOSED, BUT I DIDN'T WANT TO, I DIDN'T WANT TO ." WHEN ASKED WHAT THE PRECIPITATING FACTORS WERE PT SHRUGGED HER SHOULDERS. WHEN ASKED IF SHE WAS HAVING ANY SORT OF RELATIONSHIP ISSUES OR FINANCIAL ISSUES SHE STATED "ALL OF THE ABOVE". PT REPORTED SHE HAD BEEN NONCOMPLIANT WITH HER MEDS. SHE STATES I DON'T WANT TO HAVE TO TAKE ANY MEDICATIONS. PT HAD EVENING SNACK DURING ADMISSION, SHE WAS ORIENTED TO THE U AND INSTRUCTED TO NOTIFY STAFF IF HAVING ANY FEELINGS OF SI OR SELF HARM. PT STATED SHE WAS TIRED AND WENT TO BED AROUND 2030. Q15 MINUTE ROUNDING TO BE DONE PER PT SAFETY/UNIT PROTOCOL.
[2024-12-29] MEDS ORDERED: HYDHCL25 PO (02:33)
[2024-12-29] MEDS ORDERED: LYBALVI 15-101 EACH PO (02:34)
--- NOTE | 2024-12-29 04:03 | NUR ---
END OF SHIFT UPDATE PT HAS REMAINED IN BED THROUGHOUT THE NIGHT. NO ACUTE CHANGES. Q15 MINUTE CHECKS TO CONTINUE PER PT SAFETY.
[2024-12-29 08:59] VITALS: BP 138/96
[2024-12-29] MEDS ORDERED: Multivitamins 1 Tab PO SCH (09:00)
[2024-12-29] MEDS ORDERED: LYBALVI PO SCH (11:00)
--- NOTE | 2024-12-29 16:55 | NUR ---
SHIFT SUMMARY NO ACUTE EVENTS TODAY. PT DENIES SI, HI, AVTH. CONSTRICTED/BLUNTED AFFECT, POVERTY OF CONTENT W/ SPEECH, AND GUARDED. PT LAID IN BED FOR MOST OF DAY SLEEPING/RESTING QUIETLY EXCEPT TO EAT MEALS AND TALK TO MOM ON THE PHONE/VISITATION.
[2024-12-29 19:55] VITALS: BP 123/75
--- NOTE | 2024-12-30 04:28 | NUR ---
SHIFT SUMMARY PT PRESENT IN [place] AT START OF SHIFT. SHE DENIES ANY SI, HI, THOUGHTS OF SELF HARM OR AVTH. SHE STATES SHE WAS NEVER SUICIDAL, "I JUST HADN'T SLEPT IN SO LONG AND ACCIDENTLY OVERDOSED." PT IS MORE TALKATIVE AND BETTER EYE CONTACT THEN MY PREVIOUS SHIFT. AFFECT IS CONSTRICTED. SHE REPORTS HER MOOD "GOOD". PT INITIALLY REQUESTED NICOTINE PATCH, BUT THEN REFUSED AFTER I PULLED THE MEDICATION, STATING "I'M REALLY TRYING TO QUIT AND I JUST HAD AN URGE, BUT IT WENT AWAY." OFFERED TO CHANGE ORDER TO NICOTINE GUM AND PT DECLINED. SHE HAD EVENING SNACK AND WENT TO BED SHORTLY AFTER. NO SCHEDULED OR PRN MEDS GIVEN. Q15 MINUTE CHECKS TO CONTINUE PER PT SAFETY.
[2024-12-30 08:41] VITALS: BP 127/94
--- NOTE | 2024-12-30 16:59 | NUR ---
SHIFT SUMMARY NO ACUTE EVENTS TODAY. PT DENIES SI, HI, AVTH. STATES "I WAS NEVER SUICIDAL". PT REFUSED AM MEDICATIONS, "I DON'T WANT ANY PILLS". HAS BEEN IN ROOM SLEEPING/RESTING QUIETLY, WENT TO MEALS, AND JOINED PART OF A GROUP.
[2024-12-30 19:17] VITALS: BP 136/99
--- NOTE | 2024-12-31 04:24 | NUR ---
SHIFT SUMMARY PT DENIES ANY SI, HI OR AVTH. PT STATES SHE WAS NEVER SUICIDAL, "I WAS JUST DOING A LOT OF DRUGS AND FORGOT HOW MUCH MEDS I TOOK". SHE IS CALM AND COOPERATIVE. SHE HAD EVENING SNACK AND RETURNED TO HER ROOM. SHE PRESENTED TO NURSES STATION, REQUESTING SOMETHING TO HELP HER SLEEP AND RECEIVED A PRN MELATONIN. SHE HAS REMAINED IN BED THROUGHOUT THE NIGHT. Q15 MINUTE CHECKS TO CONTINUE PER PT SAFETY.
[2024-12-31 08:45] VITALS: BP 125/85
--- NOTE | 2024-12-31 17:52 | NUR ---
SHIFT SUMMARY PT HAS BEEN IN HER ROOM MOST OF THE SHIFT. SHE DOES GET UP FOR MEALS/SNACKS AND GROUP. THIS AFTERNOON SHE HAS BEEN WATHCING TV WITH HER PEERS. SHE REFUSED HER MORNING MEDICATION, PROVIDER WAS NOTIFIED. AT ONE POINT SHE INSISTED THAT SHE HAD TO USE THE PHONE AROUND 1PM. MIKE OFFERED TO MAKE THE CALL FOR HER HOWEVER PT REFUSED TO HAVE HER ASSOCIATE PROFESSOR OF HISTORY ADDED TO THE RELEASE LIST, PT GOT UPSET AND SAID "JUST FORGET IT" SHE DENIES SI/HI/AVH AND HAS RECEIVED Q15 MIN VISUAL SAFETY CHECKS THROUGHOUT THIS SHIFT
[2024-12-31 19:35] VITALS: BP 125/82
--- NOTE | 2025-01-01 05:07 | NUR ---
SHIFT SUMMARY" PT A/O X4. DENIES SI, HI,AVH. DECLINES OFFER TO COME OUT OF HER ROOM. SHE IS POLITE AND LESS TO COLORING, A VOUIDED THE QUESTIONS TO BE [KED. THEY WILL HELP SHE WILL HELP HERSELF BY PRAYING SHE SAYES.PT DOESN'T ELBORATE ON HER FEELINGS OR DOINGS. WILL CONTINUE TO MONITOR
--- NOTE | 2025-01-01 05:18 | NUR ---
SHIFT SUNNARY: PT A.O X4. DENIES TO SI, HI AND AVH. PATENT IN A GOOD MOOD TODAY. ALTHOUGH IT WAS REPORTED SHE HAS STAYE IN HER ROOM MOST OF THE DAY. PT STATED SHE IS TIRED AND A BIT FUSTRATED ABOUT BEING HERE. MISSES HER FAMILY. REMINDED PT THAT SHE NEEDS TO DO ALL SHE CAN HERE TO HELP HERSELF SO SHE CAN BE READY FOR WHEN SHE DOES GO HOME. SHE NODDED HER HEAD YES. REQUESTED MELATONIN FOR SLEEP AT BEDTIME. WAS GIVEN IT AND SHE FELL ALSLEEP RIGHT AWAY. HAS SLEPT SINCE GOING TO BED. WILL CONTINUE TO MONITOR
--- NOTE | 2025-01-01 17:27 | NUR ---
SHIFT SUMMARY PT HAS BEEN UP AND MORE ENGAGED TODAY IN THE [place] THAN SHE WAS YESTERDAY. ATTENDED MEALS/SNACKS, GROUP WAS NOT OFFERED TODAY. SHE IS ORIENTED x4, DENIES SI/HI/AVH, GOOD EYE CONTACT WITH CONTROLLED SPEECH. PT DID REFUSE MORNING MEDS, STATING "I DON'T TAKE ANY MEDS" SHE DID RECEIVED Q15 MIN VISUAL SAFETY CHECKS THROUGHOUT THIS SHIFT
[2025-01-01 19:30] VITALS: BP 135/93
--- NOTE | 2025-01-01 20:54 | NUR ---
PT STATES SHE THINKS SHE IS WITH MULTIPLE BABIES. SHE STATES THE TEST WAS WRONG "IT DOESN'T NEGATIVE ASSEMBLER WHEN YOU HAVE MULTIPLES." STATES SHE FEELS HICCOUGHS AND KICKING IN ABDOMEN. PT STATES SHE DOESN'T WANT ANY MEDICATIONS SINCE SHE MIGHT BE AND THEN IMMEDIATELY ASKS FOR EVENING MEDICATIONS. PT DENIES SI, HI, AV HALLUCIATIONS BUT WILL NOT MAINTAIN EYE CONTACT WHEN ANSWERING THESE QUESTIONS.
--- NOTE | 2025-01-01 23:49 | NUR ---
MID SHIFT SUMMARY: NO CHANGES TO STATUS SINCE SHIFT ASSESSMENT.
--- NOTE | 2025-01-02 04:21 | NUR ---
END OF SHIFT UPDATE ASSUMED CARE OF PT AT 0015. NO ACUTE CHANGES. PT HAS REMAINED IN BED THROUGHOUT THE NIGHT. Q15 MINUTE CHECKS TO CONTINUE PER PT SAFETY AND WELLNESS.
[2025-01-02 08:59] VITALS: BP 121/84
--- NOTE | 2025-01-02 12:05 | NUR ---
SHIFT ASSESSMENT PT IS ALERT AND ORIENTED, DECENT GROOMING, GOOD EYE CONTACT, CLEAR REGULAR SPEECH. SHE HAS DENIED SI/HI/AVH, STATES FEELING BETTER AND WOULD LIKE TO DISCHARGE. SHE WAS UP FOR BKFT, SKIPPED SNACK AND DID NOT GET UP FOR MORNING GROUP. SHE WENT BACK TO BED AFTER BKFT AND HASN'T BEEN UP SINCE. SHE REFUSED HER MORNING MEDICATION. SHE WILL CONTINUE TO RECEIVE Q15 MIN VISUAL SAFETY CHECKS THROUGHOUT THE SHIFT
--- NOTE | 2025-01-02 15:23 | NUR ---
SHIFT SUMMARY PT HAS CONTINUED TO UN-INVOLVED IN [place]IE[place] SINCE MORNING ASSESSMENT. SHE HAS BEEN IN BED, ASLEEP THIS AFTERNOON. SHE CONTINUES TO HAVE VISUAL MONITORING
[2025-01-02 19:42] VITALS: BP 120/86
--- NOTE | 2025-01-03 04:19 | NUR ---
SHIFT SUMMARY AT THE START OF SHIFT PT PRESENTED TO NURSES STATION STATING SHE WAS ANXIOUS ABOUT POSSIBLE DISCHARGE TOMORROW (STATES THE DOCTOR TOLD HER SHE IS DISCHARGING TOMORROW). SHE STATES SHE FEELS READY, SHE IS JUST ANXIOUS TO LEAVE. SHE REQUESTED MELATONIN FOR ANXIETY. PT INFORMED MELATONIN IS TO ASSIST WITH SLEEPING AND IT WAS TOO EARLY FOR BED. PT OFFERED ANXIETY MEDICATION AND SHE REFUSED, STATING SHE DOESN'T WANT TO TAKE IT BECAUSE SHE BELIEVES SHE IS . PT AGAIN INFORMED THAT HER TEST CAME BACK NEGATIVE, SHE STATES URINE DOESN'T SHOW IT WHEN THERE ARE MULTIPLES." PT RECEIVED NICOTINE GUM AND JOINED PEERS IN GROUP ROOM, WATCHING TV, TALKING AND LAUGHING. SHE LATER REQUESTED AND RECEIVED MELATONIN. SHE HAD EVENING SNACK AND WENT TO BED SHORTLY AFTER. Q15 MINUTE CHECKS TO CONTINUE PER PT SAFETY AND WELLNESS.
[2025-01-03 09:37] VITALS: BP 133/92
--- NOTE | 2025-01-03 11:52 | NUR ---
IMPORTANT DISCHARGE INFORMATION PATIENT IS BEING DISCHARGED TODAY. HER FRIEND "MAURY" IS COMING AROUND 1PM TO PICK HER UP. ALL PARTIES VERBALIZE AN UNDERSTANDING. FOLLOW UP WITH PATRICE SAMANIEGO ON 01/04/25 AT 1:30PM FOR MENTAL HEALTH FOLLOW UP. THIS WILL BE AT THE [facility]. FOLLOW UP WITH [facility] OPEN DOOR ACCESS AVAILABLE TO YOU. PHARMACY: [facility] FAX [phone]
--- NOTE | 2025-01-03 13:10 | NUR ---
DISCHARE SUMMARY D/C PACKET PRINTED AND EXPLAINED TO PT. PT STATES SHE UNDERSTANDS HER F/U APPOINTMENTS AND DENIES ANY QUESTIONS. SHE REFUSED TO SIGN THE ACKNOWLEDGEMENT FORM. PT WAS GIVEN THE D/C PACKET WITH A COPY OF HER SAFETY PLAN. NO NEW PRESCRIPTIONS WERE ORDERED ON DISCHARGE. PT CHANGED HERSELF INTO HER OWN CLOTHING THAT HER PERSON BROUGHT FOR HER. SHE DID NOT HAVE ANY PERSONAL BELONGINGS STORED WITH [facility]. SHE AMBULATED OUT OF [facility] WITH HER S/O TO TRANSPORT HER.
== END 2025-01-03 13:07 | disposition home or self-care (01) | DRG 885 ==
LOC: BHU 17:45
PROVIDERS: ADMIT Psychiatry & Neurology Psychiatry
DX: F33.2 Major depressive disorder, recurrent severe without psychotic features (principal); R45.851 Suicidal ideations; F60.3 Borderline personality disorder; F43.25 Adjustment disorder with mixed disturbance of emotions and conduct; Z88.0 Allergy status to penicillin; Z88.8 Allergy status to other drugs, medicaments and biological substances; Z88.2 Allergy status to sulfonamides; F17.210 Nicotine dependence, cigarettes, uncomplicated; F10.90 Alcohol use, unspecified, uncomplicated; F15.10 Other stimulant abuse, uncomplicated; Z28.21 Immunization not carried out because of patient refusal; Z91.199 Patient's noncompliance with other medical treatment and regimen due to unspecified reason
CPT/HCPCS: A9270

== ENCOUNTER 2025-02-23 00:54 | Inpatient (IN) | payer OTHER ==
[~2025-02-23] VITALS: Ht 157.5 cm; Wt 75.0 kg
[2025-02-23] VITALS (22 sets, daily range): BP systolic 107–133; BP diastolic 59–102
[~2025-02-23 00:54] MED LIST changes: +HYDHCL25 PO; +LYBALVI 15-101 EACH PO
[2025-02-23] MEDS ORDERED: Midazolam HCL 1 MG/ML 5MLVIAL ONE (00:57)
[2025-02-23] MEDS ORDERED: FentaNYL Citrate 50 MCG/ML 2 ML Injection IV PRN ×2 (01:05→02:35)
[2025-02-23 01:09] LABS: Calcium, Ionized (POC) 1.07 mmol/L (1.10-1.46); Chloride (POC) 100 mmol/L (98-108); Creatinine (POC) 1.2 mg/dL (0.6-1.0); Glucose (ISTAT POC) 150 mg/dL (70-99); Hematocrit (POC) 44.0 % (36.0-46.0); Hemoglobin (POC) 15.0 g/dL (12.0-16.0); Potassium (POC) 2.7 mmol/L (3.5-5.5); Sodium (POC) 138 mmol/L (135-148); Total CO2 (POC) 22 mmol/L (21-32)
[2025-02-23 01:10] LABS: BASOPHILS ABSOLUTE AUTO 0.06 K/mm3 (0.00-0.23); BASOPHILS PERCENT AUTO 0 % (0-2); EOSINOPHILS ABSOLUTE AUTO 0.02 K/mm3 (0.00-0.68); EOSINOPHILS PERCENT AUTO 0 % (0-6); Hematocrit 43.5 % (33.0-51.0); Hemoglobin 15.8 g/dL (11.5-16.0); IMMATURE GRAN ABSOLUTE AUTO 0.13 K/mm3 (0.00-0.10); IMMATURE GRAN PERCENT AUTO 1 % (0-1); LYMPHOCYTES ABSOLUTE AUTO 1.65 K/mm3 (0.84-5.20); LYMPHOCYTES PERCENT AUTO 7 % (21-46); MONOCYTES ABSOLUTE AUTO 1.64 K/mm3 (0.16-1.47); MONOCYTES PERCENT AUTO 7 % (4-13); Mean Corpuscular HGB Conc 36.3 g/dL (31.5-36.5); Mean Corpuscular Volume 80 fL (80-100); NEUTROPHILS ABSOLUTE AUTO 21.25 K/mm3 (1.96-9.15); NEUTROPHILS PERCENT AUTO 86 % (41-73); NRBC ABSOLUTE 0.00 K/mm3 (0.00-0.02); NRBC Auto 0.0 /100 WBC (0.0-0.2); Platelet Count 359 K/mm3 (150-400); RDW Coefficient Variation 12.0 % (11.7-14.2); RDW Standard Deviation 34.5 fL (35.1-46.3)
[2025-02-23] MEDS ORDERED: Diazepam 5 MG / ML 2ML SYR ONE (01:27)
[2025-02-23] MEDS ORDERED: LORazepam 2 MG/ML 1ML Injection IV PRN ×2 (01:50→03:15)
[2025-02-23 02:04] LABS: Source, Urine Clean Catch
[2025-02-23] MEDS ORDERED: Midazolam HCl 1MG / ML 2ML Vial IV ONE ×3 (02:10)
[2025-02-23] MEDS ORDERED: Diazepam 5 MG / ML 2ML SYR IV ONE ×2 (02:10)
[2025-02-23 02:15] LABS: Salicylate 3.9 mg/dL (2.8-20.0); Thyroid Stimulating Hormone 1.520 uIU/mL (0.360-4.800)
[2025-02-23 02:19] LABS: Acetaminophen, Random <2.0 ug/mL (10.0-30.0); Alanine Aminotransfer (ALT/SGP 58 U/L (12-78); Albumin, Blood 4.3 g/dL (3.4-5.0); Albumin/Globulin Ratio 1.3 (0.8-1.8); Anion Gap 14 mmol/L (3-11); Aspartate Aminotrans (AST/SGOT 53 U/L (12-37); Bilirubin, Total 1.2 mg/dL (0.1-1.0); Blood Urea Nitrogen 9 mg/dL (8-24); CO2, Blood 23 mmol/L (21-32); Calcium, Blood 9.5 mg/dL (8.5-10.1); Chloride, Blood 102 mmol/L (98-108); Creatinine, Blood 1.07 mg/dL (0.40-1.00); Globulin, Blood 3.2 g/dL (2.2-4.0); Glucose, Blood 153 mg/dL (70-99); Potassium, Blood 2.7 mmol/L (3.5-5.5); Sodium, Blood 136 mmol/L (136-145); Total Protein, Blood 7.5 g/dL (6.4-8.2)
[2025-02-23 02:24] LABS: Bilirubin, Urine Neg (Neg); Glucose Qualitative, Urine Neg (Neg); Ketones, Urine 2+ (Neg); Leukocyte Esterase, Urine Neg (Neg); Protein, Urine 2+ (Neg); Specific Gravity, Urine 1.015 (1.003-1.022); Urobilinogen, Urine 1+ (Normal)
[2025-02-23] MEDS ORDERED: NS 1,000 ML IV SCH ×2 (02:25→02:35)
[2025-02-23 02:31] LABS: Color, Urine Yellow (P-Yellow)
[2025-02-23 02:32] LABS: Red Blood Cells, Urine 0-2 /hpf (0-2)
[2025-02-23] MEDS ORDERED: Ondansetron HCl 2 MG / ML 2ML Vial IV PRN (02:35)
[2025-02-23] MEDS ORDERED: FLU VACC TS2025-26(6MOS UP)/PF 45 MCG/0.5 ML SYRINGE IM SCH (02:35)
[2025-02-23] MEDS ORDERED: Midazolam HCl 1MG / ML 2ML Vial ONE (02:53)
[2025-02-23] MEDS ORDERED: FentaNYL Citrate 50 MCG/ML 2 ML Injection ONE ×2 (02:53→04:37)
[2025-02-23] MEDS ORDERED: Rocuronium Bromide 10 MG/ML 5ML Injection IV ONE (02:54)
[2025-02-23] MEDS ORDERED: CeFAZolin Sodium 2,000 MG in NS 100 ML IV SCH (03:05)
[2025-02-23] MEDS ORDERED: Magnesium Sulf 2 GM/Water 50ML 50 ML IV ONE (03:20)
[2025-02-23] MEDS ORDERED: HYDROmorphone HCl/Pf 1MG SYR ONE (03:39)
[2025-02-23 04:06] LABS: U Amphetamine Screen DETECTED; U Barbiturate Screen Not Detected; U Benzodiazapine Screen Not Detected; U Buprenorphine Screen Not Detected; U Cannabinoids Screen Not Detected; U Cocaine Screen Not Detected; U Methadone Screen Not Detected; U Methamphetamine Screen DETECTED; U Opiates Screen Not Detected; U Oxycodone Screen Not Detected; U Phencyclidine Screen Not Detected
[2025-02-23 05:38] LABS: BASOPHILS ABSOLUTE AUTO 0.02 K/mm3 (0.00-0.23); BASOPHILS PERCENT AUTO 0 % (0-2); EOSINOPHILS ABSOLUTE AUTO 0.03 K/mm3 (0.00-0.68); EOSINOPHILS PERCENT AUTO 0 % (0-6); Hematocrit 36.2 % (33.0-51.0); Hemoglobin 12.7 g/dL (11.5-16.0); IMMATURE GRAN ABSOLUTE AUTO 0.04 K/mm3 (0.00-0.10); IMMATURE GRAN PERCENT AUTO 0 % (0-1); LYMPHOCYTES ABSOLUTE AUTO 1.72 K/mm3 (0.84-5.20); LYMPHOCYTES PERCENT AUTO 12 % (21-46); MONOCYTES ABSOLUTE AUTO 1.42 K/mm3 (0.16-1.47); MONOCYTES PERCENT AUTO 10 % (4-13); Mean Corpuscular HGB Conc 35.1 g/dL (31.5-36.5); Mean Corpuscular Volume 83 fL (80-100); NEUTROPHILS ABSOLUTE AUTO 10.85 K/mm3 (1.96-9.15); NEUTROPHILS PERCENT AUTO 77 % (41-73); NRBC ABSOLUTE 0.00 K/mm3 (0.00-0.02); NRBC Auto 0.0 /100 WBC (0.0-0.2); Platelet Count 207 K/mm3 (150-400); RDW Coefficient Variation 12.3 % (11.7-14.2); RDW Standard Deviation 37.4 fL (35.1-46.3)
[2025-02-23 06:24] LABS: Alanine Aminotransfer (ALT/SGP 42.0 U/L (12-78); Albumin, Blood 3.0 g/dL (3.4-5.0); Albumin/Globulin Ratio 1.2 (0.8-1.8); Anion Gap 9.0 mmol/L (3-11); Aspartate Aminotrans (AST/SGOT 36.0 U/L (12-37); Bilirubin, Total 1.4 mg/dL (0.1-1.0); Blood Urea Nitrogen 8.0 mg/dL (8-24); CO2, Blood 25.0 mmol/L (21-32); Calcium, Blood 8.0 mg/dL (8.5-10.1); Chloride, Blood 106.0 mmol/L (98-108); Creatinine, Blood 0.96 mg/dL (0.40-1.00); Globulin, Blood 2.5 g/dL (2.2-4.0); Glucose, Blood 118.0 mg/dL (70-99); Potassium, Blood 3.3 mmol/L (3.5-5.5); Sodium, Blood 137.0 mmol/L (136-145); Total Protein, Blood 5.5 g/dL (6.4-8.2)
--- NOTE | 2025-02-23 10:00 | NUR ---
ASSUMED CARE AT 0700 PT LAYING IN BED AND EASILY AWAKES TO VERBAL STIMULI; SHE IS ORIENTED X2 AND IS VERY GUARDED REGARDING PERSONAL CARE; SHE REF TO HAVE PUPILS CHECKED AND SQUEEZES EYES CLOSED. PAIN MANAGMENT CHALLENGING, DR SANTIAGO AT BEDSIDE THIS AM AND CHANGING PAIN REGIMEN; PT FALLS ALSEEP EASILY AFTER PAIN MEDIATION BUT ONCE AWAKE IS VERY ANXIOUS AND ONLY STATES THAT SHE IS "IN PAIN". WHILE SLEEPING PT HAS APNIC EPISODES WHERE SPO2 DECREASES TO LOW 70'S; PLACED ON 2-5L NC WHILE SLEEPING. AFEBRILE. HR 70-80'S. SBP 120'S. CURRENTLY NPO, TOLERATING ICE CHIPS WELL. SCHMIDT IN PLACE AND DRAINING TO GRAVITY. LLQ WOUND VAC IN PLACE WITH MINIMAL SEROSANGQUANIOUS OUTPUT. ACROSS THE LOWER ABD GAUZE DRESSING IN PLACE WITH SMALL AMOUNT OF OUTPUT. NS INFUSING AT 100ML/HR. SEE SHIFT ASSESSMENT FOR FULL ASSESSMENT.
--- NOTE | 2025-02-23 12:14 | NUR ---
UPDATE PT REFUSING TO HAVE BLOOD DRAWN BY STAFF. SHE IS YELLING AT STAFF STATING "THAT'S MY PROPERTY, YOU CAN'T TAKE IT!", SHE WAS NOT REDIRECTABLE AND COULD NOT BE REASONED WITH. SHE WAS REMINDED SEVERAL TIMES THAT SHE WAS IN THE HOSPITAL AND HAD ABD SURGERY, SHE DID NOT ACKNOWLEDGE THAT AND CONT TO YELL AT STAFF; SHE STATED SHE WAS GOING TO LEAVE AND SHE SAT UP, SHE DID NOT ATTEMPT TO LEAVE THE BED. EVENTULLY STAFF LEFT THE ROOM. SITTER CONT AT BEDSIDE.
--- NOTE | 2025-02-23 19:29 | NUR ---
END OF SHIFT SUMMARY PT SLEPT FOR MOST OF THE DAY. PRN OXY GIVEN Q4HR FOR 10/10 PAIN TO ABD. AROUND 1730 PT WAS MORE ORIENTED THAN PREVIOUS ASSESSMENT; SHE IS ABLE TO RECALL THE EVENTS THAT LEAD HER TO THE HOSPITAL; AFTER ASKING FURTHER QUESTIONS, THE PATIENT STATED THAT SHE WAS TRYING TO "CUT OUT THE BABY". SHE ALSO WAS ASKING FOR WATER AND WAS TOLERATING PO INTAKE WELL. SPO2 IMPROVED AND O2 NOT NEEDED FOR THE REST OF THE DAY. HR 80-90'S. SBP 120'S. SCHMIDT IN PLACE AND DRAINING TO GRAVITY. WOUND VAC IN PLACE TO LLQ WITH 50ML OUTPUT; DRESSING TO LOWER ABD SHOWS NO SIGNS OF BLEEDING, DRESSING INTACT. NS INFUSING AT 100ML/HR. REPORT GIVEN TO PM RN. PT MOTHER CALLED TWICE FOR UPDATES. SHE IS VERY CONCERNED ABOUT THE PT AND WANTS TO TALK WITH DR MENDEZ TOMORROW REGARDING TREATMENT. SHE PLANS ON VISITING PT TOMORROW WELL.
[2025-02-24 04:00] VITALS: BP 100/56
--- NOTE | 2025-02-24 04:59 | NUR ---
SHIFT SUMMARY PT A/OX3, ABLE TO MAKE NEEDS KNOWN. 1:1 SITTER IN DIRECT VIEW OF PATIENT. PT HAS BEEN COOPERATIVE WITH ALL CARE ASIDE FROM AM LAB DRAW. SHE HAS BEEN THANKFUL TO STAFF FOR CARE AND PLEASANT. ON ROOM AIR, OCCASSIONAL USE OF 4L NC R/T SLEEP APNEA. L/S CLEAR. HR 70-90'S, BP STABLE. TOLERATING PO INTAKE WITHOUT N/V. NO BM. SCHMIDT IN PLACE. WOUND VAC IN PLACE, GOOD SEAL, ALL ABD DRESSIGNS C/D/I. SOME OLD SHADOWING ON LARGE WHITE GAUZE BANDAGE, NO NEW BLEEDING NOTED. PAIN HAS BEEN CONTROLLED WITH PRN ORAL MEDS. IV PRNS AVAILABLE ON MAY. PT STATED SHE WANTS TO SEE PSYCH TODAY TO DISCUSS FURTHER TREATMENT AND OBTAINING A NEW PCP FOR HER PSYCH MEDS AT HOME AFTER D/C. NO ACUTE EVENTS.
[2025-02-24 07:50] VITALS: BP 106/65
--- NOTE | 2025-02-24 08:00 | NUR ---
PT DROWSY, ORIENTED X4. REQUESTS PAIN MEDS AND ATIVAN FOR ANXIETY. DENIES SUICIDAL IDEATION. PT CONTINUOUSLY ASKING IF THERE IS A CHANCE SHE CAN GET . EDUCATED ON NEED TO GET OOB AND REMOVE SCHMIDT CATH TODAY, PT DECLINES AT THIS TIME. WOUND VAC INTACT TO L ABD, DRESSING TO MID RIGHT ABD CLEAN AND INTACT. PT HAS MULTIPLE SCABS DOWN LEGS THAT LOOK IF THEY COULD HAVE BEEN MAD BY SCISSORS. 1:[address]
[2025-02-24 12:00] VITALS: BP 107/58
--- NOTE | 2025-02-24 13:27 | NUR ---
EDUCATED ABOUT NON PHARMACOLOGICAL PAIN RELIEF METHODS. CONTINUOUSLY ENCOURAGING PT TO MOVE SELF IN BED. OFFERED TO ASSIST PT TO SIDE OF BED, PT DECLINED. EDUCATED PT ON NEED TO REMOVE SCHMIDT CATH FOR INFECTION PREVENTION BUT PT DECLINED. EDUCATED ABOUT COUGHING AND DEEP BREATHING EXERCISES AND SPLINTING WITH A PILLOW. PT WAS ABLE TO COMPLY WITH COUGHING AND DEEP BREATHING. PT WAS ABLE TO ASSIST STAFF WITH TURNING SIDE TO SIDE FOR BEDBATH AND LINEN CHANGE. PT REQUESTS ATIVAN SHE IS FEELING ANXIOUS. PT FALLS TO SLEEP QUICKLY WHEN LEFT ALONE.
[2025-02-24 16:00] VITALS: BP 102/66
--- NOTE | 2025-02-24 17:35 | NUR ---
SUMMARY PT SLEPT MOST OF THE DAY IF UNDISTURBED. OXYCODONE FOR PAIN, ATIVAN FOR ANXIETY. WOUND VAC INTACT WITH GOOD SUCTION. OUTPUT IS SEROSANGUINOUS. TOLERATING MEALS WELL. DR. MENDEZ CAME BY TO SEE HER THIS AFTERNOON AND WILL BE STARTING PO PSYCH MEDS. PT MADE SURGICAL STATUS THIS AFTERNOON. REPORT GIVEN TO RN AND PT TAKEN TO 353 VIA BED.
--- NOTE | 2025-02-24 17:41 | NUR ---
ASSUMPTION OF CARE: PT ARRIVED TO MEDICAL FLOOR VIA GURNEY FROM ICU ACCOMPANIED BY BRAZER HELPER INDUCTION. SCHMIDT PATENT AND DRAINING YELLOW URINE TO GRAVITY. WOUND VAC TO LMQ PATENT AND DRAINING SANGUINEOUS FLUID TO SUCTION. SL LFA. TRANSVERSE MIDABD DRESSING C/D/I WITH MINIMAL SHADOWING. MEDICATED PAIN PRIOR TO TRANSPORT TO MEDICAL FLOOR. BED IN LOWEST POSITION. CALL LIGHT WITHIN REACH. ACUTE NEEDS MET.
[2025-02-24 19:24] VITALS: BP 115/67
--- NOTE | 2025-02-24 19:26 | NUR ---
END OF SHIFT SUMMARY: A&Ox3-4. LACKS MOTIVATION TO PARTICIPATE IN CARE AND FREQUENTLY REQUESTS PAIN OR ANXIETY MEDICATIONS FOLLOWED BY IMMEDIATELY FALLING ASLEEP BEFORE MEDS ADMINISTERED. EDUCATION PROVIDED REGARDING RESPIRATORY DEPRESSANTS. EXHIBITS PROFICIENT ABILITY TO UTILIZE CALL SYSTEM. BREATHING EVEN AND UNLABORED c RA. CONTINENT OF BOWEL c USE OF BEDPAN SECONADRY TO INABILITY TO AMBUALTE FROM PAIN. SCHMIDT PATENT AND DRAINING TO GRAVITY. TOLERATING DIET. WOUND VAC PATENT AND DRAINING. DR PHILLIPS TO BEDSIDE THIS EVENING AND ORDERS PLACED FOR NPO p MIDNIGHT. BED IN LOWEST POSITION, CALL LIGHT WITHIN REACH, ALL NEEDS MET. REPORT TO ONCOMING NURSE.
[2025-02-25] VITALS (13 sets, daily range): BP systolic 92–115; BP diastolic 54–75
--- NOTE | 2025-02-25 04:21 | NUR ---
SHIFT SUMMARY ADMITTED FOR ABDOMINAL TRAUMA. FULL CODE. SHE HAS BEEN NPO SINCE MIDNIGHT ORDERED. WOUND VAC IN PLACE TO LLQ OF ABDOMEN. SURGICAL CONSULT DR. PHILLIPS. PSYCHOLOGICAL CONSULT IS DR. MENDEZ. BRAYAN IN PLACE. SHE IS A&O X2-3. HX OF BORDERLINE PERSONALITY DISORDER AND POLYSUBSTANCE ABUSE, MULTIPLE SI ATTEMPTS. SHE HAS BEEN MEDICATED FOR PAIN AND ANXIETY THIS SHIFT.
[2025-02-25 07:11] LABS: BASOPHILS ABSOLUTE AUTO 0.01 K/mm3 (0.00-0.23); BASOPHILS PERCENT AUTO 0 % (0-2); EOSINOPHILS ABSOLUTE AUTO 0.16 K/mm3 (0.00-0.68); EOSINOPHILS PERCENT AUTO 2 % (0-6); Hematocrit 33.1 % (33.0-51.0); Hemoglobin 11.3 g/dL (11.5-16.0); IMMATURE GRAN ABSOLUTE AUTO 0.03 K/mm3 (0.00-0.10); IMMATURE GRAN PERCENT AUTO 0 % (0-1); LYMPHOCYTES ABSOLUTE AUTO 2.08 K/mm3 (0.84-5.20); LYMPHOCYTES PERCENT AUTO 25 % (21-46); MONOCYTES ABSOLUTE AUTO 0.73 K/mm3 (0.16-1.47); MONOCYTES PERCENT AUTO 9 % (4-13); Mean Corpuscular HGB Conc 34.1 g/dL (31.5-36.5); Mean Corpuscular Volume 87 fL (80-100); NEUTROPHILS ABSOLUTE AUTO 5.19 K/mm3 (1.96-9.15); NEUTROPHILS PERCENT AUTO 63 % (41-73); NRBC ABSOLUTE 0.00 K/mm3 (0.00-0.02); NRBC Auto 0.0 /100 WBC (0.0-0.2); Platelet Count 180 K/mm3 (150-400); RDW Coefficient Variation 12.8 % (11.7-14.2); RDW Standard Deviation 40.7 fL (35.1-46.3)
[2025-02-25 07:40] LABS: Alanine Aminotransfer (ALT/SGP 24.0 U/L (12-78); Albumin, Blood 2.1 g/dL (3.4-5.0); Albumin/Globulin Ratio 0.8 (0.8-1.8); Anion Gap 8.0 mmol/L (3-11); Aspartate Aminotrans (AST/SGOT 12.0 U/L (12-37); Bilirubin, Total 0.3 mg/dL (0.1-1.0); Blood Urea Nitrogen 12.0 mg/dL (8-24); CO2, Blood 27.0 mmol/L (21-32); Calcium, Blood 8.2 mg/dL (8.5-10.1); Chloride, Blood 108.0 mmol/L (98-108); Creatinine, Blood 0.57 mg/dL (0.40-1.00); Globulin, Blood 2.7 g/dL (2.2-4.0); Glucose, Blood 126.0 mg/dL (70-99); Potassium, Blood 3.3 mmol/L (3.5-5.5); Sodium, Blood 140.0 mmol/L (136-145); Total Protein, Blood 4.8 g/dL (6.4-8.2)
[2025-02-25] MEDS ORDERED: LORazepam 2 MG/ML 1ML Injection IV PRN (09:35)
[2025-02-25] MEDS ORDERED: CeFAZolin Sodium 2,000 MG VIAL ONE (09:44)
--- NOTE | 2025-02-25 10:23 | NUR ---
PRE SURGERY NOTE. PT TO DSU ON BED. PT A&OX4, VERY LETHARGIC, ASKING FOR ADDITIONAL MEDICATION FOR PAIN. SCHMIDT DRAINING YELLOW URINE. ASLEEP DURING MOST OF DSU STAY, AWAKENS TO ANSWER QUESTIONS. WILL NOT ALLOW STAFF TO VISUALIZE ABDOMEN. Patient confirms NPO status and agrees with scheduled surgery. NPO STATUS CONFIRMED BY RN WELL. Pre-Op teaching done. Pt verbalizes understanding.
[2025-02-25] MEDS ORDERED: Metoclopramide HCl 5MG / ML 2ML Vial IV PRN (10:40)
[2025-02-25] MEDS ORDERED: FentaNYL Citrate 50 MCG/ML 2 ML Injection IV PRN ×2 (10:40→10:45)
[2025-02-25] MEDS ORDERED: Albuterol 2.5 MG/3 ML VIAL INH PRN (10:45)
[2025-02-25] MEDS ORDERED: HYDROmorphone HCl/Pf 1MG SYR IV PRN ×2 (10:45)
[2025-02-25] MEDS ORDERED: Ondansetron HCl 2 MG / ML 2ML Vial IV PRN (10:45)
[2025-02-25] MEDS ORDERED: HYDROmorphone HCl/Pf 1MG SYR ONE (11:01)
--- NOTE | 2025-02-25 18:29 | NUR ---
PATIENT CONSTANTLY REQUEST PAIN AND ANXIETY MEDS, RESP 6-10, SNORING LOUDLY, UNABLE TO REDIRECT OR RE EDUCATE, PATIENT CYCLES AND OBSSESS ON MINIMAL THINGS, EASILY EMOTIONAL AND AGGITATED, PATIENT ALWAYS WANTING ALL MEDICATIONS AT ONE TIME, CALL LIGHT WITH IN REACH, NO I&D TODAY BUT A NEW WOUND VAC WAS PLACED TODAY
[2025-02-25] MEDS ORDERED: Divalproex Sodium 500 MG TABCR PO SCH (21:00)
[2025-02-25] MEDS ORDERED: Ketorolac Tromethamine 15mg Vial IV PRN (22:30)
[2025-02-26 04:05] VITALS: BP 111/71
--- NOTE | 2025-02-26 06:41 | NUR ---
Shift Summary At the start of the shift pt was very painful and current orders were not managing pain well. I called the information resources manager who ordered IV Toradol. Pt has a listed allergy to NSAIDS but she told me they had caused ulcers in the past, not allergic reaction. I gave IV toradol x1 which is managing her pain well, no allergic reaction. Pt rcvd Ativan during dayshift yesterday and was started on Zyprexa and Depakote scheduled last night. Pt has been very somnolent since taking those meds and is difficult to wake even during pt care. Pt had a Hudson at the start of shift but it was for critical care I+O, I d/c the Hudson order and removed the Hudson catheter around 0400. Before this w hen she was awake pt was walking around the room naked with little regard for lines, I was able to redirect back to bed. She has a wound vac on her L abdomen. Pt is currently sleeping comfortably.
[2025-02-26 07:43] VITALS: BP 123/82
[2025-02-26 11:09] LABS: BASOPHILS ABSOLUTE AUTO 0.02 K/mm3 (0.00-0.23); BASOPHILS PERCENT AUTO 0 % (0-2); EOSINOPHILS ABSOLUTE AUTO 0.24 K/mm3 (0.00-0.68); EOSINOPHILS PERCENT AUTO 3 % (0-6); Hematocrit 35.0 % (33.0-51.0); Hemoglobin 11.7 g/dL (11.5-16.0); IMMATURE GRAN ABSOLUTE AUTO 0.03 K/mm3 (0.00-0.10); IMMATURE GRAN PERCENT AUTO 0 % (0-1); LYMPHOCYTES ABSOLUTE AUTO 1.56 K/mm3 (0.84-5.20); LYMPHOCYTES PERCENT AUTO 22 % (21-46); MONOCYTES ABSOLUTE AUTO 0.46 K/mm3 (0.16-1.47); MONOCYTES PERCENT AUTO 6 % (4-13); Mean Corpuscular HGB Conc 33.4 g/dL (31.5-36.5); Mean Corpuscular Volume 88 fL (80-100); NEUTROPHILS ABSOLUTE AUTO 4.95 K/mm3 (1.96-9.15); NEUTROPHILS PERCENT AUTO 68 % (41-73); NRBC ABSOLUTE 0.00 K/mm3 (0.00-0.02); NRBC Auto 0.0 /100 WBC (0.0-0.2); Platelet Count 200 K/mm3 (150-400); RDW Coefficient Variation 12.6 % (11.7-14.2); RDW Standard Deviation 41.1 fL (35.1-46.3)
[2025-02-26 11:34] LABS: Alanine Aminotransfer (ALT/SGP 19.0 U/L (12-78); Albumin, Blood 2.1 g/dL (3.4-5.0); Albumin/Globulin Ratio 0.7 (0.8-1.8); Anion Gap 9.0 mmol/L (3-11); Aspartate Aminotrans (AST/SGOT 11.0 U/L (12-37); Bilirubin, Total 0.3 mg/dL (0.1-1.0); Blood Urea Nitrogen 10.0 mg/dL (8-24); CO2, Blood 26.0 mmol/L (21-32); Calcium, Blood 8.4 mg/dL (8.5-10.1); Chloride, Blood 109.0 mmol/L (98-108); Creatinine, Blood 0.54 mg/dL (0.40-1.00); Globulin, Blood 3.1 g/dL (2.2-4.0); Glucose, Blood 123.0 mg/dL (70-99); Potassium, Blood 3.7 mmol/L (3.5-5.5); Sodium, Blood 140.0 mmol/L (136-145); Total Protein, Blood 5.2 g/dL (6.4-8.2)
[2025-02-26 17:57] VITALS: BP 108/69
[2025-02-26 19:08] VITALS: BP 112/67
[2025-02-27 05:25] VITALS: BP 114/70
[2025-02-27 06:03] LABS: BASOPHILS ABSOLUTE AUTO 0.03 K/mm3 (0.00-0.23); BASOPHILS PERCENT AUTO 1 % (0-2); EOSINOPHILS ABSOLUTE AUTO 0.30 K/mm3 (0.00-0.68); EOSINOPHILS PERCENT AUTO 6 % (0-6); Hematocrit 36.5 % (33.0-51.0); Hemoglobin 12.1 g/dL (11.5-16.0); IMMATURE GRAN ABSOLUTE AUTO 0.02 K/mm3 (0.00-0.10); IMMATURE GRAN PERCENT AUTO 0 % (0-1); LYMPHOCYTES ABSOLUTE AUTO 1.91 K/mm3 (0.84-5.20); LYMPHOCYTES PERCENT AUTO 35 % (21-46); MONOCYTES ABSOLUTE AUTO 0.50 K/mm3 (0.16-1.47); MONOCYTES PERCENT AUTO 9 % (4-13); Mean Corpuscular HGB Conc 33.2 g/dL (31.5-36.5); Mean Corpuscular Volume 88 fL (80-100); NEUTROPHILS ABSOLUTE AUTO 2.63 K/mm3 (1.96-9.15); NEUTROPHILS PERCENT AUTO 49 % (41-73); NRBC ABSOLUTE 0.00 K/mm3 (0.00-0.02); NRBC Auto 0.0 /100 WBC (0.0-0.2); Platelet Count 217 K/mm3 (150-400); RDW Coefficient Variation 12.3 % (11.7-14.2); RDW Standard Deviation 39.8 fL (35.1-46.3)
[2025-02-27 06:31] LABS: Alanine Aminotransfer (ALT/SGP 16.0 U/L (12-78); Albumin, Blood 2.0 g/dL (3.4-5.0); Albumin/Globulin Ratio 0.6 (0.8-1.8); Anion Gap 8.0 mmol/L (3-11); Aspartate Aminotrans (AST/SGOT 7.0 U/L (12-37); Bilirubin, Total 0.2 mg/dL (0.1-1.0); Blood Urea Nitrogen 20.0 mg/dL (8-24); CO2, Blood 27.0 mmol/L (21-32); Calcium, Blood 8.6 mg/dL (8.5-10.1); Chloride, Blood 112.0 mmol/L (98-108); Creatinine, Blood 0.63 mg/dL (0.40-1.00); Globulin, Blood 3.2 g/dL (2.2-4.0); Glucose, Blood 119.0 mg/dL (70-99); Potassium, Blood 3.9 mmol/L (3.5-5.5); Sodium, Blood 143.0 mmol/L (136-145); Total Protein, Blood 5.2 g/dL (6.4-8.2)
--- NOTE | 2025-02-27 07:24 | NUR ---
A/Ox4, VSS ON RA. PT REPORTS ABDOMINAL PAIN, MANAGED WITH TORADOL. WOUND VAC IN PLACE AT [facility]. PT PRIMARILY SLEEPING THIS SHIFT. UP TO COMMODE WITH 1P ASSIST. GOOD APPETITE OVERNIGHT. RECEIVED CALL FROM PT'S MOTHER; SHE WOULD APPRECIATE FOLLOW UP WITH CASE MANAGEMENT.
--- NOTE | 2025-02-27 07:49 | NUR ---
6683 DR MONAE ROUNDING IN ROOM. ADVISED PSYCH TO DETERMINE IF PATIENT IS CONTINUED RISK FOR SELF HARM. NO ORDERS RECEIVED.
[2025-02-27 08:24] VITALS: BP 113/76
--- NOTE | 2025-02-27 12:36 | NUR ---
PT TATIY TAKEN TO BEDSIDE BY DB, DENTAL BILLING SPECIALIST RAISING HOB SO PATIENT ABLE TO EAT. PT RAISED VOICE AND TOLD DENTAL BILLING SPECIALIST SHE DOES NOT NEED HER HEAD RAISED TO EAT. THIS RN IN TO ROOM AND ASKED PT IF I COULD RAISE HER HEAD SO SHE COULD SAFELY EAT WITHOUT CHOKING. RAISED BED 10 DEGRESS AND PT RAISED VOICE STATING "IT HURTS DONT RAISE THE BED" DISCUSSED WITH PT MY CONCERN THAT SHE COULD CHOKE MORE EASILY IN AN UPRIGHT POSITION PT STATES "ARE YOU JUST TRYING TO STARVE ME I WANT TO FUCKING SEE THE PERSON IN CHARGE". CHARGE NURSE NOTIFIED AND AT BEDSIDE
[2025-02-27 16:23] VITALS: BP 111/72
--- NOTE | 2025-02-27 18:34 | NUR ---
SHIFT SUMMARY PATIENT IN BED THIS SHIFT. DECLINING AT TIMES TO SIT UP FOR MEALS, WANTING TO EAT LAYING DOWN AND CURSING AT STAFF. BESIDES THESE SHORT EPISODES PATIENT SLEEPING 90% OF SHIFT. DR MENDEZ IN TO ROUND, STATED SHE IS TOO SEDATED AND WILL DISCONTINUE DEPAKOTE BUT CONTINUE ZYPREXA. WILL BE NPO AFTER MIDNIGHT FOR PROCEDURE IN AM PER DR YOUNG. CALL LIGHT IN REACH. BED ALARMED.
[2025-02-27 20:01] VITALS: BP 109/69
[2025-02-28] VITALS (17 sets, daily range): BP systolic 11–131; BP diastolic 57–88
[2025-02-28 06:16] LABS: BASOPHILS ABSOLUTE AUTO 0.03 K/mm3 (0.00-0.23); BASOPHILS PERCENT AUTO 1 % (0-2); EOSINOPHILS ABSOLUTE AUTO 0.28 K/mm3 (0.00-0.68); EOSINOPHILS PERCENT AUTO 5 % (0-6); Hematocrit 39.7 % (33.0-51.0); Hemoglobin 13.0 g/dL (11.5-16.0); IMMATURE GRAN ABSOLUTE AUTO 0.03 K/mm3 (0.00-0.10); IMMATURE GRAN PERCENT AUTO 1 % (0-1); LYMPHOCYTES ABSOLUTE AUTO 2.09 K/mm3 (0.84-5.20); LYMPHOCYTES PERCENT AUTO 35 % (21-46); MONOCYTES ABSOLUTE AUTO 0.45 K/mm3 (0.16-1.47); MONOCYTES PERCENT AUTO 7 % (4-13); Mean Corpuscular HGB Conc 32.7 g/dL (31.5-36.5); Mean Corpuscular Volume 88 fL (80-100); NEUTROPHILS ABSOLUTE AUTO 3.17 K/mm3 (1.96-9.15); NEUTROPHILS PERCENT AUTO 53 % (41-73); NRBC ABSOLUTE 0.00 K/mm3 (0.00-0.02); NRBC Auto 0.0 /100 WBC (0.0-0.2); Platelet Count 207 K/mm3 (150-400); RDW Coefficient Variation 12.2 % (11.7-14.2); RDW Standard Deviation 39.8 fL (35.1-46.3)
--- NOTE | 2025-02-28 06:40 | NUR ---
PT SLEPT T/O MOST OF THE SHIFT AWAKENS EASILY TO NAME. PAIN MEDICATION GIVEN ONCE THIS SHIFT. PT GIVEN SNACKS PER REQUESTS.
[2025-02-28 06:43] LABS: Alanine Aminotransfer (ALT/SGP 17.0 U/L (12-78); Albumin, Blood 2.4 g/dL (3.4-5.0); Albumin/Globulin Ratio 0.8 (0.8-1.8); Anion Gap 6.0 mmol/L (3-11); Aspartate Aminotrans (AST/SGOT 15.0 U/L (12-37); Bilirubin, Total 0.2 mg/dL (0.1-1.0); Blood Urea Nitrogen 14.0 mg/dL (8-24); CO2, Blood 25.0 mmol/L (21-32); Calcium, Blood 8.3 mg/dL (8.5-10.1); Chloride, Blood 112.0 mmol/L (98-108); Creatinine, Blood 0.56 mg/dL (0.40-1.00); Globulin, Blood 2.9 g/dL (2.2-4.0); Glucose, Blood 99.0 mg/dL (70-99); Potassium, Blood 4.4 mmol/L (3.5-5.5); Sodium, Blood 139.0 mmol/L (136-145); Total Protein, Blood 5.3 g/dL (6.4-8.2)
--- NOTE | 2025-02-28 10:05 | NUR ---
1000- pt refusing hcg blood lab draw. day surgery aware. pt states she had a hysterectomy 11 years ago in [place].
[2025-02-28] MEDS ORDERED: Midazolam HCl 1MG / ML 2ML Vial ONE (12:05)
--- NOTE | 2025-02-28 12:10 | NUR ---
PT TO UNIT VIA W/C, ABLE TO TRANSFER TO WITH STANDBY ASSISTANCE. WOUND VAC BROUGHT WITH PT TO DAY SURGERY ON BATTERY POWER. POWER CORD LEFT IN PT'S ROOM. ALL OTHER BELONGINGS LEFT IN PT'S ROOM. Pre-Op teaching done. Pt verbalizes understanding. PT REPORTS HAVING A HYSTERECTOMY BEFORE MOVING TO [place]. Patient confirms NPO status and agrees with scheduled surgery.
[2025-02-28] MEDS ORDERED: HYDROmorphone HCl/Pf 1MG SYR IV PRN ×2 (12:35→12:40)
[2025-02-28] MEDS ORDERED: FentaNYL Citrate 50 MCG/ML 2 ML Injection IV PRN ×2 (12:35→12:40)
--- NOTE | 2025-02-28 17:03 | NUR ---
1652- THIS RN NOTIFIED MD DOOLEY THAT PT HAD A PSYCH CERT ORDER PLACED BY MD SUN TODAY AT 1335. MD DOOLEY AWARE.
--- NOTE | 2025-02-28 18:35 | NUR ---
SUMMARY- AAOX4. PT IS CALM, THANKFUL, AND APPROPRIATE ALL SHIFT. PAIN WELL CONTROLLED WITH EMAR PAIN MEDS. SBA/X1 TO BSC. PT ON RA. GREAT APPETITE. PT'S WOUND VAC IS PATENT AND WORKING WELL WITH NO ISSUES AFTER IT WAS CHANGED IN OR TODAY. NO ACUTE EVENTS THIS SHIFT.
[2025-03-01 04:34] VITALS: BP 120/56
--- NOTE | 2025-03-01 05:20 | NUR ---
SHIFT SUMMARY 39 YR F ADMITTED ON 02/24/25. FULL CODE. NO ACUTE CHANGES THIS SHIFT. PT C/O PAIN AND ANXIETY AND WAS MEDICATED PER EMAR. SHE WAS FINALLY ABLE TO FALL ASLEEP AT APPROX 0300. SHE HAS BEEN PLEASANT AND COOPERATIVE W/ CARE. WOUND VAC IS WORKING WELL. PT HAD A LARGE BM THIS SHIFT. CALLS APPROPRIATELY. BED IN LOW POSITION AND CALL LIGHT IN REACH.
[2025-03-01 07:37] VITALS: BP 122/76
--- NOTE | 2025-03-01 07:46 | NUR ---
1914 ON 02/28/2025-CALL TO MD PHILLIPS- THIS RN CALLED MD PHILLIPS AND INFORMED HIM THAT THE "BRIDGE UNDER THE CIRCULAR BLACK FOAM PIECE IS NOT SUCTIONED DOWN IT THERE IS BLOODY DRAINAGE PRESENT." MD PHILLIPS AWARE AND INFORMED THIS RN THAT THIS WAS THE CASE IN THE OR AND IT WAS NOT SUCTIONING DOWN WHEN PATIENT LEFT THE OR. IS OKAY WITH THE WOUND VAC IN THIS FASHION.
[2025-03-01 15:38] VITALS: BP 116/74
--- NOTE | 2025-03-01 18:11 | NUR ---
SUMMARY- AAOX4. SBA-X1 TO BSC/BATHROOM. ON RA. PT'S PAIN WELL CONTROLLED WITH EMAR PAIN MEDS. PT'S "ANXIETY" WELL CONTROLLED WITH ATARAX. PT DID DESCRIBE THAT HER PAIN WAS WORSE TODAY COMAPARED TO YESTERDAY. PT WAS PLEASANT AND COOPERATIVE ALL SHIFT. GOOD APPETITE. WOUND VAC PATENT AND WORKING WELL WITH NO ISSUES. NO ACUTE EVENTS THIS SHIFT.
[2025-03-01 19:29] VITALS: BP 119/79
[2025-03-02] VITALS (12 sets, daily range): BP systolic 95–117; BP diastolic 55–73
--- NOTE | 2025-03-02 06:04 | NUR ---
SHIFT SUMMARY NO ACUTE CHANGES THIS SHIFT. PT IS PLEASANT AND COOPERATIVE WITH CARE. SHE FREQUENTLY ASKES FOR PAIN AND ANXIETY MEDS. FENTANYL WAS DC'D THIS SHIFT. SHE IS ABLE TO USE THE BSC INDEPENDANTLY. CALLS APPROPRIATELY FOR ASSISTANCE. CLEAR LIQUIDS ONLY SINCE MIDNIGHT AND WILL BE NPO @ 1000. PLAN IS FOR WOUND CARE W/ SEDATION. PT MAY DISCHARGE TODAY. BED IS IN LOW POSITION AND CALL LIGHT IN REACH.
[2025-03-02] MEDS ORDERED: Dexmedetomidine HCL 200 MCG / 2 ML ONE (12:51)
--- NOTE | 2025-03-02 17:05 | NUR ---
SHIFT SUMMARY PATIENT IS A&OX4, PLEASANT AND COOPERATIVE WITH CARE. SHE IS ON ROOM AIR AND DOES NOT HAVE TELEMETRY. DAY SURGERY TODAY TO REPLACE WOUND VAC. PATIENT TOLERATED THE PROCEDURE WELL AND RETURNED IN A STABLE CONDITION. SHE HAS BEEN PAINFUL AND SO MEDICATED PER EMAR. WHEN SHE IS NOT AWAKE AND EATING, SHE IS SLEEPING. SHE IS CONTINENT AND USES THE BSC WITH SBA, INDEPENDENT WITH STANDING AND MOVING TO COMMODE. HER MOOD HAS BEEN FLAT TODAY BUT TREATS NURSING STAFF WITH PROFOUND KINDNESS. HER BED IS LOW AND LOCKED, CALL LIGHT IN REACH.
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
[2025-03-03 06:27] VITALS: BP 119/75
[2025-03-03 16:08] VITALS: BP 108/68
--- NOTE | 2025-03-03 17:58 | NUR ---
ASSUMED CARE PT IS A/O X 4 FLAT AFFECT, MINIMAL C/O PAIN, PT HOPING TO JUST SLEEP TODAY AND IS EXPECTING TO BE DISCHARGED. WOUND VAC TO [facility] C/D/I. PT IN INDEPENDANT IN ROOM AND ABLE [place] NEEDS KNOWN MENTATION IS CLR AND INTACT.
--- NOTE | 2025-03-03 18:00 | NUR ---
MD IN FOR ASSESSMENT MD AT BEDSIDE, PT ADDRESSING HER NEED FOR CONTINUED TREATMENT IN [facility] IF POSSIBLE, PT STATED SHE WAS NOT DOING WELL AND ADMITS SHE NEEDS FURTHER HELP. DR HERNANDEZ IS INFORMED, PT TO BE TRANSFERED TO U AT SOME POINT. PT MEDICATED FOR ANXIETY PER REQUEST.
--- NOTE | 2025-03-03 18:02 | NUR ---
NO CHANGE] PT DOING WELL NO CHANGE IN CONDITION, PT TO POSSIBLY STATY HER, FACILITIES WILL NOT ADMIT PT WITH WOUND VAC. CARE PLANNING TO CONT MANAGEMENT. WOUND VAC CONT, C/D/I, PT MEDICATED FOR ABD PAIN.
[2025-03-03 20:04] VITALS: BP 109/52
[2025-03-04 04:48] VITALS: BP 107/59
[2025-03-04 07:18] VITALS: BP 113/64
[2025-03-04] MEDS ORDERED: Nicoderm Cq1 EAC1 TOP (14:29)
[2025-03-04] MEDS ORDERED: OLAN10 PO (14:30)
[2025-03-04] MEDS ORDERED: OLAN5 PO (14:30)
[2025-03-04] MEDS ORDERED: OXYC5 PO (14:31)
== END 2025-03-04 15:12 | disposition home or self-care (01) | DRG 579 ==
LOC: ER 00:54 → PCU 00:55 → ICUE 00:55 → PCU 00:55 → ICUE 05:04 → MEDS 02-24 15:24 → ICUE 02-24 15:24 → MEDS 02-24 17:34
PROVIDERS: Emergency Medicine; Family Medicine; Internal Medicine; Psychiatry & Neurology Psychiatry; Surgery; ADMIT Internal Medicine
PROC: 0T9B70Z Drainage of Bladder with Drainage Device, Via Natural or Artificial Opening (ICD-10-PCS; 2025-02-23)
PROC: 30233N1 Transfusion of Nonautologous Red Blood Cells into Peripheral Vein, Percutaneous Approach (ICD-10-PCS; 2025-02-23)
PROC: 3E0234Z Introduction of Serum, Toxoid and Vaccine into Muscle, Percutaneous Approach (ICD-10-PCS; 2025-02-23)
PROC: 3E03329 Introduction of Other Anti-infective into Peripheral Vein, Percutaneous Approach (ICD-10-PCS; 2025-02-23)
PROC: 0JQ80ZZ Repair Abdomen Subcutaneous Tissue and Fascia, Open Approach (ICD-10-PCS; principal; 2025-02-23 08:15)
DX: S31.114A Laceration without foreign body of abdominal wall, left lower quadrant without penetration into peritoneal cavity, initial encounter (principal); G93.41 Metabolic encephalopathy; N17.9 Acute kidney failure, unspecified; F32.A Depression, unspecified; E86.0 Dehydration; F10.20 Alcohol dependence, uncomplicated; F15.129 Other stimulant abuse with intoxication, unspecified; S71.012A Laceration without foreign body, left hip, initial encounter; E87.6 Hypokalemia; D72.829 Elevated white blood cell count, unspecified; F29 Unspecified psychosis not due to a substance or known physiological condition; G89.18 Other acute postprocedural pain; F60.3 Borderline personality disorder; K76.0 Fatty (change of) liver, not elsewhere classified; R45.1 Restlessness and agitation; Z88.0 Allergy status to penicillin; Z88.2 Allergy status to sulfonamides; Z88.1 Allergy status to other antibiotic agents; Z88.8 Allergy status to other drugs, medicaments and biological substances; Z91.51 Personal history of suicidal behavior; Z79.899 Other long term (current) drug therapy; Z90.710 Acquired absence of both cervix and uterus; Z23 Encounter for immunization; X78.8XXA Intentional self-harm by other sharp object, initial encounter
CPT/HCPCS: 36415; 36430; 51702; 70450; 71260; 72125; 74177; 80047; 80053; 80164; 81001; 84443; 84703; 85014; 85025; 85730; 86850; 86900; 86901; 86923; 90471; 90715; 93005; 93010; 96361; 96374; 96375; 99291-25; A9270; G0378; G0390; G0480; J0690; J1171; J1885; J2060; J2250; J2405; J2704; J3010; J3360; J3475; J3480; J7030; J7050; J7120; P9016; Q9967

== ENCOUNTER 2025-03-07 07:38 | Day surgery (SDC) | payer OTHER ==
[~2025-03-07 07:38] MED LIST changes: +Nicoderm Cq1 EAC1 TOP; +OLAN10 PO; +OLAN5 PO; +OXYC5 PO
== END 2025-03-07 23:00 | disposition home or self-care (01) ==
LOC: WOUND 07:38
DX: S31.139A Puncture wound of abdominal wall without foreign body, unspecified quadrant without penetration into peritoneal cavity, initial encounter (principal); X58.XXXA Exposure to other specified factors, initial encounter; Z88.1 Allergy status to other antibiotic agents
CPT/HCPCS: G0463

== ENCOUNTER 2025-03-09 01:25 | Day surgery (SDC) | payer OTHER ==
[2025-03-09] MEDS ORDERED: Lidocaine HCl 4% Topical Soln 5 MLUDC ONE (15:43)
== END 2025-03-09 23:59 | disposition home or self-care (01) ==
LOC: WOUND 01:25
DX: S31.139A Puncture wound of abdominal wall without foreign body, unspecified quadrant without penetration into peritoneal cavity, initial encounter (principal); X58.XXXA Exposure to other specified factors, initial encounter
CPT/HCPCS: A9270

== ENCOUNTER 2025-03-13 11:51 | Emergency (ER) | payer OTHER ==
[~2025-03-13] VITALS: Ht 157.5 cm; Wt 72.6 kg
[2025-03-13 12:40] LABS: BASOPHILS ABSOLUTE AUTO 0.03 K/mm3 (0.00-0.23); BASOPHILS PERCENT AUTO 0 % (0-2); EOSINOPHILS ABSOLUTE AUTO 0.18 K/mm3 (0.00-0.68); EOSINOPHILS PERCENT AUTO 2 % (0-6); Hematocrit 40.8 % (33.0-51.0); Hemoglobin 13.5 g/dL (11.5-16.0); IMMATURE GRAN ABSOLUTE AUTO 0.02 K/mm3 (0.00-0.10); IMMATURE GRAN PERCENT AUTO 0 % (0-1); LYMPHOCYTES ABSOLUTE AUTO 2.34 K/mm3 (0.84-5.20); LYMPHOCYTES PERCENT AUTO 26 % (21-46); MONOCYTES ABSOLUTE AUTO 0.50 K/mm3 (0.16-1.47); MONOCYTES PERCENT AUTO 6 % (4-13); Mean Corpuscular HGB Conc 33.1 g/dL (31.5-36.5); Mean Corpuscular Volume 86 fL (80-100); NEUTROPHILS ABSOLUTE AUTO 6.09 K/mm3 (1.96-9.15); NEUTROPHILS PERCENT AUTO 67 % (41-73); NRBC ABSOLUTE 0.00 K/mm3 (0.00-0.02); NRBC Auto 0.0 /100 WBC (0.0-0.2); Platelet Count 414 K/mm3 (150-400); RDW Coefficient Variation 13.2 % (11.7-14.2); RDW Standard Deviation 41.3 fL (35.1-46.3)
[2025-03-13 13:01] LABS: Alanine Aminotransfer (ALT/SGP 51.0 U/L (12-78); Albumin, Blood 3.5 g/dL (3.4-5.0); Albumin/Globulin Ratio 1.0 (0.8-1.8); Anion Gap 8.0 mmol/L (3-11); Aspartate Aminotrans (AST/SGOT 21.0 U/L (12-37); Bilirubin, Total 0.2 mg/dL (0.1-1.0); Blood Urea Nitrogen 12.0 mg/dL (8-24); CO2, Blood 26.0 mmol/L (21-32); Calcium, Blood 8.9 mg/dL (8.5-10.1); Chloride, Blood 108.0 mmol/L (98-108); Creatinine, Blood 0.65 mg/dL (0.40-1.00); Globulin, Blood 3.5 g/dL (2.2-4.0); Glucose, Blood 95.0 mg/dL (70-99); Potassium, Blood 4.0 mmol/L (3.5-5.5); Sodium, Blood 138.0 mmol/L (136-145); Total Protein, Blood 7.0 g/dL (6.4-8.2)
[2025-03-13] MEDS ORDERED: NS 1,000 ML IV SCH (13:25)
[2025-03-13] MEDS ORDERED: FentaNYL Citrate 50 MCG/ML 2 ML Injection IV ONE (13:30)
[2025-03-13] MEDS ORDERED: Lidocaine/Tetracaine/Epinephr 3 ML GEL SYRINGE TOP ONE (13:30)
[2025-03-13] MEDS ORDERED: Ketorolac Tromethamine 15mg Vial IV ONE (13:30)
[2025-03-13] MEDS ORDERED: Voltaren100 GM TOP (15:37)
[2025-03-13] MEDS ORDERED: ASPI81CH PO (15:37)
== END 2025-03-13 15:50 | disposition home or self-care (01) ==
LOC: ER 11:51
PROVIDERS: Physician Assistant
DX: Z45.89 Encounter for adjustment and management of other implanted devices (principal); I82.611 Acute embolism and thrombosis of superficial veins of right upper extremity; Z88.0 Allergy status to penicillin; Z88.2 Allergy status to sulfonamides; Z88.1 Allergy status to other antibiotic agents; Z88.8 Allergy status to other drugs, medicaments and biological substances; Z79.899 Other long term (current) drug therapy
CPT/HCPCS: 80053; 84702; 85025; 93971; 96374; 96375; 99283-25; A9270; J1885; J3010; J7030

== ENCOUNTER → 2025-03-21 | Day surgery (SDC) | payer OTHER ==
[~2025-03-21] MED LIST changes: +ASPI81CH PO; +Lidocaine HCl 4% Cream 5 GM ONE; +Voltaren100 GM TOP
== END ==
LOC: WOUND 11:45
DX: S31.139D Puncture wound of abdominal wall without foreign body, unspecified quadrant without penetration into peritoneal cavity, subsequent encounter (principal); X58.XXXD Exposure to other specified factors, subsequent encounter; F32.A Depression, unspecified
CPT/HCPCS: A6213; A9270; G0463